=== PATIENT | female | born 1930 | race Hispanic/Latino ===

== ENCOUNTER 2017-03-03 18:33 | Inpatient (IN) | payer MEDICARE ==
[2017-03-03 20:13] LABS: Basophils % (Auto) 0.1 % (0.0-1.8); Eosinophils % (Auto) 0.1 % (0.0-4.3); Hematocrit 37.3 % (30.3-42.9); Hemoglobin 12.2 gm/dl (10.1-14.3); Mean Corpuscular HGB Conc 33 % (30-34); Mean Corpuscular Hemoglobin 32 pg (28-32); Mean Corpuscular Volume 98 fl (79-97); Red Blood Count 3.81 M/mm3 (3.65-5.03); Red Cell Distribution Width 15.3 % (13.2-15.2); White Blood Count 10.2 K/mm3 (4.5-11.0)
--- NOTE | 2017-03-03 20:16 | Emergency Department Report ---
ED Altered Mental Status HPI - General Chief Complaint: Dyspnea/Respdistress Stated Complaint: FAILURE TO THRIVE Time Seen by Provider: 03/03/17 19:48 Source: family, EMS Mode of arrival: Stretcher Limitations: Physical Limitation - History of Present Illness Initial Comments: 86 yo female the past medical history CHF, COPD, dementia, hypertension, atrial fibrillation, previous appendectomy internal defibrillator presents to the hospital with decrease in mental status. Patient has been in rehabilitation the last 4 weeks after fall. Patient did not have any specific injury since the fall but did have a bad UTI. Prior to her rehabilitation admission patient will walk with a cane but now she has very little independent movement. On . Patient had a chest x-ray that was positive for upper right lung infiltrate, cardiomegaly, and pacemaker. Per medical record patient also has a history of nonischemic cardiomyopathy with EF of 30-35% and chronic renal insufficiency. Patient has been on Levaquin since February 25 5 days for pneumonia and doxycycline prescribed on February 20 7 days for cellulitis. Patient has been on oxygen at the rehabilitation facility since being diagnosed with pneumonia. Given patient's significant dementia mostly history of present illness obtained from [facility] records and family members at the bedside. Positive cough reported. No reports of fever. - Related Data Allergies Allergy/AdvReac Type Severity Reaction Status Date / Time codeine Allergy Headache Verified 03/03/17 19:33 Iodine and Iodide Containing Allergy Rash Verified 03/03/17 19:33 Produc Sulfa (Sulfonamide Allergy Hives Verified 03/03/17 19:33 Antibiotics) ED Review of Systems ROS: Stated complaint: FAILURE TO THRIVE Other details as noted in HPI Comment: Unobtainable due to pts medical conditions (limited due to dementia) ED Past Medical Hx - Past Medical History Previous Medical History?: Yes Hx Hypertension: Yes Hx Congestive Heart Failure: Yes Hx COPD: Yes Hx Dementia: Yes Additional medical history: afib, - Surgical History Past Surgical History?: Yes Hx Pacemaker: Yes Hx Internal Defibrillator: Yes Hx Appendectomy: Yes Additional Surgical History: hysterectomy - Social History Smoking Status: Never Smoker Substance Use Type: None ED Physical Exam - General Limitations: Physical Limitation - Other Other exam information: General: No limitations, patient is alert in no acute distress Head exam: Atraumatic, normocephalic Eyes exam: Normal appearance ENT: Moist mucous membrane, normal oropharynx Neck exam: nontender Respiratory exam: Wet sounding cough, bilateral rhonchi, no accessory muscle use Cardiovascular: Normal rate and rhythm, normal heart sounds Abdomen: Soft, nondistended, and nontender, with normal bowel sounds, no rebound, or guarding Extremity: Full range of motion normal inspection no deformity no edema Back: Normal Inspection, full range of motion, no tenderness Neurologic: Alert, cranial nerves intact, no motor or sensory deficit Psychiatric: normal affect, normal mood Skin: Warm, dry, intact ED Course Vital Signs 03/03/17 03/03/17 03/03/17 19:37 19:44 19:46 Temperature 97.2 F L Pulse Rate 72 Respiratory 18 Rate Blood Pressure 127/50 [Left] O2 Sat by Pulse 97 95 Oximetry - Reevaluation(s) Reevaluation #1: 03/03/17 22:20 Pt being monitored. Straight cath UA still pending - Lab Data Result diagrams: 03/03/17 19:48 03/03/17 19:43 Lab Results 03/03/17 03/03/17 03/03/17 Range/Units 19:43 19:43 19:48 WBC 10.2 (4.5-11.0) K/mm3 RBC 3.81 (3.65-5.03) M/mm3 Hgb 12.2 (10.1-14.3) gm/dl Hct 37.3 (30.3-42.9) % MCV 98 H (79-97) fl MCH 32 (28-32) pg MCHC 33 (30-34) % RDW 15.3 H (13.2-15.2) % Plt Count 90 L (140-440) K/mm3 Lymph % (Auto) 28.3 (13.4-35.0) % Sac % (Auto) 5.2 (0.0-7.3) % Eos % (Auto) 0.1 (0.0-4.3) % Baso % (Auto) 0.1 (0.0-1.8) % Lymph # 2.9 (1.2-5.4) K/mm3 Sac # 0.5 (0.0-0.8) K/mm3 Eos # 0.0 (0.0-0.4) K/mm3 Baso # 0.0 (0.0-0.1) K/mm3 Seg Neutrophils % 66.3 (40.0-70.0) % Seg Neutrophils # 6.8 (1.8-7.7) K/mm3 PT (12.2-14.9) Sec. INR (0.87-1.13) APTT (24.2-36.6) Sec. Sodium 146 H (137-145) mmol/L Potassium 3.7 (3.6-5.0) mmol/L Chloride 100.7 (98-107) mmol/L Carbon Dioxide 36 H (22-30) mmol/L Anion Gap 13 mmol/L BUN 42 H (7-17) mg/dL Creatinine 1.2 (0.7-1.2) mg/dL Estimated GFR 42 ml/min BUN/Creatinine Ratio 35.00 % Glucose 125 H (65-100) mg/dL Calcium 10.6 H (8.4-10.2) mg/dL Total Bilirubin 0.70 (0.1-1.2) mg/dL AST 24 (5-40) units/L ALT 11 (7-56) units/L Alkaline Phosphatase 91 (35-129) units/L NT-Pro-B Natriuret Pep 5035 H (0-900) pg/mL Total Protein 5.8 L (6.3-8.2) g/dL Albumin 3.1 L (3.9-5) g/dL Albumin/Globulin Ratio 1.1 % TSH (0.270-4.200) mlU/mL Free T4 (0.76-1.46) ng/dL Urine Color (Yellow) Urine Turbidity (Clear) Urine pH (5.0-7.0) Ur Specific [place] (1.003-1.030) Urine Protein (Negative) mg/dL Urine Glucose (UA) (Negative) mg/dL Urine Ketones (Negative) mg/dL Urine Blood (Negative) Urine Nitrite (Negative) Urine Bilirubin (Negative) Urine Urobilinogen (<2.0) mg/dL Ur Leukocyte Esterase (Negative) Urine WBC (Auto) (0.0-6.0) /HPF Urine RBC (Auto) (0.0-6.0) /HPF U Epithel Cells (Auto) (0-13.0) /HPF Urine Bacteria (Auto) (Negative) /HPF Hyaline Casts /LPF Urine Mucus /HPF Hepatitis A IgM Ab (NonReactive) Hep B Core IgM Ab (NonReactive) Hepatitis C Antibody (NonReactive) HIV 1&2 Antibody Rapid (Non React) HIV P24 Antigen (Non React) 03/03/17 03/03/17 03/03/17 Range/Units 20:03 20:15 20:15 WBC (4.5-11.0) K/mm3 RBC (3.65-5.03) M/mm3 Hgb (10.1-14.3) gm/dl Hct (30.3-42.9) % MCV (79-97) fl MCH (28-32) pg MCHC (30-34) % RDW (13.2-15.2) % Plt Count (140-440) K/mm3 Lymph % (Auto) (13.4-35.0) % Sac % (Auto) (0.0-7.3) % Eos % (Auto) (0.0-4.3) % Baso % (Auto) (0.0-1.8) % Lymph # (1.2-5.4) K/mm3 Sac # (0.0-0.8) K/mm3 Eos # (0.0-0.4) K/mm3 Baso # (0.0-0.1) K/mm3 Seg Neutrophils % (40.0-70.0) % Seg Neutrophils # (1.8-7.7) K/mm3 PT 15.5 H (12.2-14.9) Sec. INR 1.24 H (0.87-1.13) APTT 34.0 (24.2-36.6) Sec. Sodium (137-145) mmol/L Potassium (3.6-5.0) mmol/L Chloride (98-107) mmol/L Carbon Dioxide (22-30) mmol/L Anion Gap mmol/L BUN (7-17) mg/dL Creatinine (0.7-1.2) mg/dL Estimated GFR ml/min BUN/Creatinine Ratio % Glucose (65-100) mg/dL Calcium (8.4-10.2) mg/dL Total Bilirubin (0.1-1.2) mg/dL AST (5-40) units/L ALT (7-56) units/L Alkaline Phosphatase (35-129) units/L NT-Pro-B Natriuret Pep (0-900) pg/mL Total Protein (6.3-8.2) g/dL Albumin (3.9-5) g/dL Albumin/Globulin Ratio % TSH 0.359 (0.270-4.200) mlU/mL Free T4 1.96 H (0.76-1.46) ng/dL Urine Color (Yellow) Urine Turbidity (Clear) Urine pH (5.0-7.0) Ur Specific Eaton (1.003-1.030) Urine Protein (Negative) mg/dL Urine Glucose (UA) (Negative) mg/dL Urine Ketones (Negative) mg/dL Urine Blood (Negative) Urine Nitrite (Negative) Urine Bilirubin (Negative) Urine Urobilinogen (<2.0) mg/dL Ur Leukocyte Esterase (Negative) Urine WBC (Auto) (0.0-6.0) /HPF Urine RBC (Auto) (0.0-6.0) /HPF U Epithel Cells (Auto) (0-13.0) /HPF Urine Bacteria (Auto) (Negative) /HPF Hyaline Casts /LPF Urine Mucus /HPF Hepatitis A IgM Ab Non-reactive (NonReactive) Hep B Core IgM Ab Non-reactive (NonReactive) Hepatitis C Antibody Non-reactive (NonReactive) HIV 1&2 Antibody Rapid Non react (Non React) HIV P24 Antigen Non react (Non React) 03/03/17 Range/Units 23:21 WBC (4.5-11.0) K/mm3 RBC (3.65-5.03) M/mm3 Hgb (10.1-14.3) gm/dl Hct (30.3-42.9) % MCV (79-97) fl MCH (28-32) pg MCHC (30-34) % RDW (13.2-15.2) % Plt Count (140-440) K/mm3 Lymph % (Auto) (13.4-35.0) % Sac % (Auto) (0.0-7.3) % Eos % (Auto) (0.0-4.3) % Baso % (Auto) (0.0-1.8) % Lymph # (1.2-5.4) K/mm3 Sac # (0.0-0.8) K/mm3 Eos # (0.0-0.4) K/mm3 Baso # (0.0-0.1) K/mm3 Seg Neutrophils % (40.0-70.0) % Seg Neutrophils # (1.8-7.7) K/mm3 PT (12.2-14.9) Sec. INR (0.87-1.13) APTT (24.2-36.6) Sec. Sodium (137-145) mmol/L Potassium (3.6-5.0) mmol/L Chloride (98-107) mmol/L Carbon Dioxide (22-30) mmol/L Anion Gap mmol/L BUN (7-17) mg/dL Creatinine (0.7-1.2) mg/dL Estimated GFR ml/min BUN/Creatinine Ratio % Glucose (65-100) mg/dL Calcium (8.4-10.2) mg/dL Total Bilirubin (0.1-1.2) mg/dL AST (5-40) units/L ALT (7-56) units/L Alkaline Phosphatase (35-129) units/L NT-Pro-B Natriuret Pep (0-900) pg/mL Total Protein (6.3-8.2) g/dL Albumin (3.9-5) g/dL Albumin/Globulin Ratio % TSH (0.270-4.200) mlU/mL Free T4 (0.76-1.46) ng/dL Urine Color Yellow (Yellow) Urine Turbidity Clear (Clear) Urine pH 5.0 (5.0-7.0) Ur Specific E[place] 1.015 (1.003-1.030) Urine Protein <15 mg/dl (Negative) mg/dL Urine Glucose (UA) Neg (Negative) mg/dL Urine Ketones Neg (Negative) mg/dL Urine Blood Sm (Negative) Urine Nitrite Neg (Negative) Urine Bilirubin Neg (Negative) Urine Urobilinogen < 2.0 (<2.0) mg/dL Ur Leukocyte Esterase Tr (Negative) Urine WBC (Auto) 6.0 (0.0-6.0) /HPF Urine RBC (Auto) < 1.0 (0.0-6.0) /HPF U Epithel Cells (Auto) 5.0 (0-13.0) /HPF Urine Bacteria (Auto) 2+ (Negative) /HPF Hyaline Casts 10 /LPF Urine Mucus 3+ /HPF Hepatitis A IgM Ab (NonReactive) Hep B Core IgM Ab (NonReactive) Hepatitis C Antibody (NonReactive) HIV 1&2 Antibody Rapid (Non React) HIV P24 Antigen (Non React) - EKG Data -: EKG Interpreted by Me (demand pacemaker rate 73) When compared to previous EKG there are: previous EKG unavailable - Radiology Data Radiology results: report reviewed interpreted by me: Chest x-ray: Heart is enlarged. Retrocardiac density measuring [address] chest noncontrast: Masslike structure seen on chest x-ray as a prominent left atrium. Heart is overall slightly enlarged. Atelectasis at both lung bases and feet lower lobe infiltrate - Medical Decision Making UA pending at disposition. Patient has bilateral infiltrate seen on chest x- ray but no leukocytosis or fever. Plan to admit to the hospital for further treatment and possible repeat her evaluation given prominent left atrium on CT. [employer] had a accidental needle stick to a blood draw differential. Hepatitis panels ordered - Differential Diagnosis pneumonia, bronchitis, CHF, LA, UTI, thyroid disease Critical Care Time: No Critical care attestation.: If time is entered above; I have spent that time in minutes in the direct care of this critically ill patient, excluding procedure time. ED Disposition Clinical Impression: Pacemaker, Dementia, Pulmonary infiltrate, Left atrial enlargement, Thrombocytopenia CHF (congestive heart failure) Qualifiers: Congestive heart failure type: unspecified congestive heart failure type Congestive heart failure chronicity: unspecified congestive heart failure chronicity Qualified Code(s): I50.9 - Heart failure, unspecified Atrial fibrillation Qualifiers: Atrial fibrillation type: chronic Qualified Code(s): I48.2 - Chronic atrial fibrillation Dyspnea Qualifiers: Dyspnea type: unspecified Qualified Code(s): R06.00 - Dyspnea, unspecified Disposition: OP ADMITTED IP TO THIS HOSP Is pt being admited?: Yes Condition: Stable Referrals: PRIMARY CARE,MD [Primary Care Provider] - 3-5 Days Time of Disposition: 22:20 (Dr Ortega/hosp)
[2017-03-03 20:21] LABS: Albumin 3.1 g/dL (3.9-5); Albumin/Globulin Ratio 1.1 %; Bilirubin,Total 0.7 mg/dL (0.1-1.2); Calcium 10.6 mg/dL (8.4-10.2); Chloride 100.7 mmol/L (98-107); Potassium 3.7 mmol/L (3.6-5.0); Total Protein 5.8 g/dL (6.3-8.2)
[2017-03-03 20:21] LABS: INR 1.24 (0.87-1.13)
--- NOTE | 2017-03-03 20:41 | Admit Criteria Form ---
Admission Criteria Documentation: HEART FAILURE: COMMON COMPLICATIONS Clinical Indications for Inpatient Care (Place 'X' for any and all applicable criteria): Ongoing inpatient care may be indicated for heart failure with ANY ONE of the following (1)(2)(3)(4)(5): [ ]I. Ongoing need for care for primary condition requiring frequent therapy adjustments because of changes in cardiac function (eg, drug dosage changes for drugs that are renally metabolized) [ ]II. New-onset heart failure [ ]III. Heart failure with decreased urine output not responsive to attempts to optimize volume status [ ]IV. Acute cardiac ischemia causing or associated with failure [X]V. Complications of heart failure, including ANY ONE of the following: [ ]a) Pericardial effusion [ ]b) Symptomatic pleural effusion [ ]c) O2 saturation <90% or PO2 < 60 mm Hg (8.0 kPa) on room air or require baseline supplemental O2 [ ]d) Tachypnea [ X]e) Dyspnea [ ]f) Syncope [ ]g) Change in mental status [ ]h) Acute renal insufficiency that is severe (reduction of more than 50% in estimated glomerular filtration rate from baseline) or progressive reduction of more than 25% in estimated glomerular filtration rate from baseline, with creatinine continuing to rise) [ ]i) Hemodynamic instability [ ]j) Anasarca [ ]k) Clinically significant metabolic abnormalities due to heart failure (eg, new-onset metabolic acidosis) Extended stay beyond goal length of stay for primary condition may be needed until ALL of the following are present(1)(3): [ ]a) Stable and effective diuretic regimen established (or patient on stable dialysis regimen if in chronic renal failure) [ ]b) Breathing comfortably at rest [ ]c) Saturation of arterial oxygen greater than 90% or at acceptable baseline [ ]d) Pulmonary edema absent or improved [ ]e) Hemodynamic stability [ ]f) Volume status acceptable on oral medication [ ]g) Peripheral or sacral edema absent or improved [ ]h) Renal function stable and manageable at a lower level of care [ ]i) Complications (eg, pleural effusion) resolved or manageable at a lower level of care [ ]j) Patient or caregiver has received written discharge instructions or educational material addressing activity level, diet, discharge medications, follow-up appointment, weight monitoring, and what to do if symptoms worsen The original [facility] content created by [employer] has been revised. The portions of the content which have been revised are identified through the use of italic text or in bold, and [facility] has neither reviewed nor approved the modified material.All other unmodified content is copyright [facility]. Please see references footnoted in the original [facility] edition 2016 Admission Criteria Met: Yes
--- NOTE | 2017-03-03 20:44 | XRay Report ---
FINAL REPORT PROCEDURE: XR CHEST 1V AP TECHNIQUE: Chest radiograph anteroposterior view. CPT 16403 HISTORY: Dyspnea COMPARISON: No prior studies are available for comparison. FINDINGS: The heart is enlarged. There is retrocardiac masslike density measuring 12 centimeters. This could be a large hiatal hernia, aortic aneurysm or other mass. PA and lateral chest x-ray may be helpful. There is suboptimal inspiration. There is discoid atelectasis at the right lung base. There are no infiltrates, effusions or pneumothoraces. There is kyphosis of the thoracic spine. Pacemaker leads are in proper position. IMPRESSION: The heart is enlarged. There is retrocardiac masslike density measuring 12 centimeters. This could be a large hiatal hernia, aortic aneurysm or other mass. PA and lateral chest x-ray may be helpful. There is suboptimal inspiration. There is discoid atelectasis at the right lung base. There are no infiltrates, effusions or pneumothoraces.
[2017-03-03 20:49] LABS: Platelet Count 90 K/mm3 (140-440)
[2017-03-03 21:20] LABS: HIV-1 Antigen p24 Non React (Non React); HIVR-1/2 Ab Non React (Non React)
--- NOTE | 2017-03-03 21:57 | Cat Scan Report ---
FINAL REPORT PROCEDURE: CT CHEST WO CON TECHNIQUE: Computerized axial tomography of the chest was performed without contrast material. This study is performed without intravenous contrast and the sensitivity for pathology, including neoplasms, adenopathy, abscess, pulmonary embolism and aortic dissection, is reduced. HISTORY: mediastium mass, recent RUL infiltrate COMPARISON: Chest x-ray 03/03/2017. Questionable mediastinal mass noted at that time. TECHNICAL QUALITY: Satisfactory. FINDINGS: The masslike shadow seen on chest x-ray is a prominent left atrium. The heart is overall slightly enlarged. There is no pericardial effusion or mass. Thoracic aorta is normal in caliber. There is no mediastinal or hilar lymphadenopathy. There is atelectasis at the lung bases and there are faint lower lobe infiltrates. There are no effusions or pneumothoraces. 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 There is no intrinsic filling defect. There is mild kyphosis of the thoracic spine. There are no acute bony abnormalities. The pacemaker leads are in proper position. Images of the upper abdomen demonstrate cholelithiasis. There is edematous thickening of the distal esophagus and the gastric fundus suggesting inflammation. There are bilateral kidney cysts. IMPRESSION: The masslike shadow seen on chest x-ray is a prominent left atrium. The heart is overall slightly enlarged. There is no pericardial effusion or mass. Thoracic aorta is normal in caliber. There is no mediastinal or hilar lymphadenopathy. There is atelectasis at the lung bases and there are faint lower lobe infiltrates. There are no effusions or pneumothoraces. 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 There is no intrinsic filling defect. .
[2017-03-03] MEDS ORDERED: TYLENOL PO PRN (23:32)
[2017-03-03] MEDS ORDERED: ZOFRAN IV PRN (23:37)
[2017-03-03 23:57] LABS: Bacteria,Urine 2+ /HPF (Negative); Bilirubin,Urine NEG (Negative); Blood,Urine SM (Negative); Ketones,Urine NEG (Negative); Leukocyte Esterase,Urine TR (Negative); Mucus,Urine 3+ /HPF; Nitrite,Urine NEG (Negative); Protein,Urine <15 mg/dL mg/dL (Negative); RBC,Urine < 1.0 /HPF (0.0-6.0); Urobilinogen,Urine < 2.0 mg/dL (<2.0)
[2017-03-04] MEDS ORDERED: PERCOCET PO SCH (02:15)
--- NOTE | 2017-03-04 03:46 | History and Physical Report ---
CHIEF COMPLAINT: Change in mental status. HISTORY OF PRESENT ILLNESS: The patient is an 86-year-old female brought from rehabilitation center where she went to have rehabilitation following a fall about 4 to 5 weeks ago. The patient was also diagnosed with pneumonia and was started on oral antibiotics and since then, the patient has not been feeling alright and has been on oxygen at the rehabilitation center. The patient also complains of weakness. There was no history of fever or chills. No history of chest pain or cough or nausea or vomiting and the patient was also recently diagnosed with urinary tract infection. PAST MEDICAL HISTORY: Pertinent for congestive heart failure with cardiomyopathy with ejection fraction of 30-35%, COPD, dementia, hypertension, atrial fibrillation. Also, the patient has a past history of hypertension. PAST SURGICAL HISTORY: Pertinent for pacemaker placement, defibrillator placement, appendectomy as well as hysterectomy. FAMILY HISTORY: Noncontributory. SOCIAL HISTORY: The patient stays at the rehabilitation center. Does not smoke cigarettes, does not drink alcohol and does not use illicit drugs. HOME MEDICATIONS: The patient's home medications are not known at this time. ALLERGIES: The patient is ALLERGIC TO CODEINE, IODINE AND IODIZED PRODUCT. REVIEW OF SYSTEMS: CONSTITUTIONAL: There is no fever, no chills, no diaphoresis. HEENT: There is no headache or sore throat. CARDIOVASCULAR: There is no chest pain, orthopnea. RESPIRATORY SYSTEM: There is shortness of breath, but no cough. GASTROINTESTINAL SYSTEM: There is no nausea, no vomiting, no abdominal pain, diarrhea or constipation. NEUROLOGICAL SYSTEM: Change in mental status noted. No dizziness. Weakness noted. MUSCULOSKELETAL SYSTEM: There is no joint pain or swelling. DERMATOLOGICAL SYSTEM: There is no skin rash or itching. GENITOURINARY SYSTEM: There is no dysuria, hematuria, or flank pain. Rest of system review is normal. PHYSICAL EXAMINATION: GENERAL: At the time of exam, the patient was found to be alert and oriented to person only and not in acute distress. VITAL SIGNS: Shows normal temperature with blood pressure of 128/49 with O2 sat of 98% on room air, the patient's pulse rate is normal, respiratory rate is also normal. HEENT: Showed pupils to be equal, round, reactive to light and accommodation. Extraocular muscles are intact. NECK: Supple with no JVD or carotid bruit. CARDIOVASCULAR SYSTEM: Show first and second heart sounds with irregularly irregular rhythm. Acute. RESPIRATORY: Show good air entry on both sides of the lung with bilateral scattered crackles. GASTROINTESTINAL SYSTEM: Show abdomen to be full, soft, nontender with no organomegaly or rigidity. NEUROLOGICAL: Showed no focal deficit. MUSCULOSKELETAL: Show no joint swelling or tenderness. DERMATOLOGICAL SYSTEM: Show no skin rash. GENITOURINARY: Showing no costovertebral angle tenderness. PERTINENT LABORATORY DATA AND IMAGING STUDIES: The patient had CBC done with normal white count, normal hemoglobin and normal hematocrit. Coagulation study shows slightly elevated INR of 1.24. The patient's chemistry shows slightly elevated sodium of 146 with high CO2 of 36, high BUN of 42, normal creatinine and normal GFR. The patient's brain natriuretic peptide show a high value of 5035. The patient's free T4 level was high with a value of 1.96 while TSH level is normal. The patient's urinalysis was unremarkable. Serology for hepatitis A is nonreactive and hepatitis B surface antigen is pending. Hepatitis B core IgM is nonreactive. Hepatitis C antibody is nonreactive. HIV-1/HIV-2 antigen nonreactive. IMAGING STUDIES: The patient had imaging studies done that shows CT chest that shows bilateral pulmonary infiltrate and prominent left atrium. DIAGNOSES: 1. Altered mental status. 1. Pneumonia bilaterally. PLAN: The patient will be admitted to medical floor and will have 2D echo done in the morning to analyze the heart especially the atrium that looks abnormal on chest x-ray and CT. Also, patient's DVT prophylaxis will be through sequential compressive device and also the patient will be on heparin 5000 units subQ q. 12. The patient will be on Levaquin 750 mg daily and will be on IV Zofran 4 mg q. 6 hours for nausea and vomiting and Tylenol 650 mg by mouth every 6 hours for fever and headache. The patient will be on oxygen by nasal cannula 2 liters per minute and the patient's home medications will be started when they are known. JOB# [id number] OCN/NTS
[2017-03-04] MEDS: HEPARIN SUB-Q SCH ×2 (05:49→09:58)
[2017-03-04] MEDS: COREG PO SCH ×2 (09:54→21:16)
[2017-03-04] MEDS: LASIX PO SCH (09:54)
[2017-03-04] MEDS: ALDACTONE PO SCH (09:55)
[2017-03-04] MEDS: ZESTRIL PO SCH (09:56)
[2017-03-04] MEDS: BABY ASPIRIN PO SCH (09:56)
[2017-03-04] MEDS: NAMENDA XR PO SCH (09:57)
[2017-03-04] MEDS: MUCINEX ER PO SCH ×2 (09:57→21:16)
[2017-03-04] MEDS ORDERED: DOXYCYCLINE 100 MG PO SCH (10:00)
[2017-03-04] MEDS ORDERED: NAMENDA 7 MG PO SCH (10:00)
[2017-03-04] MEDS ORDERED: NON-FORMULARY (Spironolactone 25 MG) PO SCH (10:00)
[2017-03-04] MEDS ORDERED: VIBRAMYCIN PO SCH (10:00)
[2017-03-04] MEDS ORDERED: NON-FORMULARY (Lasix Tab 20 MG) PO SCH (10:00)
[2017-03-04] MEDS ORDERED: LEVAQUIN 750MG/150ML 750 MG/150 ML BAG IV SCH ×2 (10:00)
[2017-03-04] MEDS ORDERED: NON-FORMULARY (Coreg 12.5 MG) PO SCH (10:00)
[2017-03-04] MEDS ORDERED: NON-FORMULARY (Simvastatin 20 MG) PO SCH (10:00)
[2017-03-04] MEDS ORDERED: VANCOMYCIN PHARMACY TO DOSE IV SCH (11:00)
[2017-03-04] MEDS: PERCOCET 5/325 PO SCH ×2 (12:00→17:54)
[2017-03-04] MEDS ORDERED: PNEUMOVAX 23 IM ONE (12:00)
[2017-03-04] MEDS ORDERED: FLUARIX QUAD 2016-2017(36 MOS+) IM ONE (12:00)
[2017-03-04] MEDS: ZOSYN/NS 4.5GM/100ML 4.5 GM/100 ML VIAL IV SCH ×2 (12:35→17:42)
[2017-03-04] MEDS ORDERED: VANCOMYCIN 1,750 MG in NACL 0.9% 500 ML 500 ML IV ONE (13:00)
--- NOTE | 2017-03-04 14:40 | Progress Note ---
Assessment and Plan Assessment and plan: Healthcare Associated pneumonia involving both lower lobes Dementia Mild dehydration - Patient is on IV vancomycin and Zosyn - Supportive care for dementia - Resume oral feeding - Nutrition consult Disposition - Continue inpatient care - Family expressed not happy in the current prison so they want to change - unit manager convenience stores and executive secretary social welfare involved with placement History Interval history: Patient was seen and evaluated this morning, daughter and were in the room. Patient was somnolent. Hospitalist Physical - Physical exam Narrative exam: Not in cardiopulmonary distress. The patient appeared well nourished and normally developed. Vital signs as documented. Head exam is unremarkable. No scleral icterus . Neck is without jugular venous distension, thyromegaly, or carotid bruits. Lungs are clear to auscultation. Cardiac exam reveals regular rate and Rhythm. First and second heart sounds normal. No murmurs, rubs or gallops. Abdominal exam reveals normal bowel sounds, no masses, no organomegaly and no aortic enlargement. Extremities are nonedematous and both femoral and pedal pulses are normal. PROVIDER EDUCATION SPECIALIST: lethargic. - Constitutional Vitals: Temp Pulse Resp BP Pulse Ox 97.3 F L 76 16 127/60 96 03/04/17 08:45 03/04/17 08:45 03/04/17 08:45 03/04/17 08:45 03/04/17 09:02 Results - Labs CBC & Chem 7: 03/03/17 19:48 03/03/17 19:43 Labs: Laboratory Last Values WBC 10.2 K/mm3 (4.5-11.0) 03/03/17 19:48 RBC 3.81 M/mm3 (3.65-5.03) 03/03/17 19:48 Hgb 12.2 gm/dl (10.1-14.3) 03/03/17 19:48 Hct 37.3 % (30.3-42.9) 03/03/17 19:48 MCV 98 fl (79-97) H 03/03/17 19:48 MCH 32 pg (28-32) 03/03/17 19:48 MCHC 33 % (30-34) 03/03/17 19:48 RDW 15.3 % (13.2-15.2) H 03/03/17 19:48 Plt Count 90 K/mm3 (140-440) L 03/03/17 19:48 Lymph % (Auto) 28.3 % (13.4-35.0) 03/03/17 19:48 [place] % (Auto) 5.2 % (0.0-7.3) 03/03/17 19:48 Eos % (Auto) 0.1 % (0.0-4.3) 03/03/17 19:48 Baso % (Auto) 0.1 % (0.0-1.8) 03/03/17 19:48 Lymph # 2.9 K/mm3 (1.2-5.4) 03/03/17 19:48 [place] # 0.5 K/mm3 (0.0-0.8) 03/03/17 19:48 Eos # 0.0 K/mm3 (0.0-0.4) 03/03/17 19:48 Baso # 0.0 K/mm3 (0.0-0.1) 03/03/17 19:48 Seg Neutrophils % 66.3 % (40.0-70.0) 03/03/17 19:48 Seg Neutrophils # 6.8 K/mm3 (1.8-7.7) 03/03/17 19:48 PT 15.5 Sec. (12.2-14.9) H 03/03/17 20:03 INR 1.24 (0.87-1.13) H 03/03/17 20:03 APTT 34.0 Sec. (24.2-36.6) 03/03/17 20:03 Sodium 146 mmol/L (137-145) H 03/03/17 19:43 Potassium 3.7 mmol/L (3.6-5.0) 03/03/17 19:43 Chloride 100.7 mmol/L (98-107) 03/03/17 19:43 Carbon Dioxide 36 mmol/L (22-30) H 03/03/17 19:43 Anion Gap 13 mmol/L 03/03/17 19:43 BUN 42 mg/dL (7-17) H 03/03/17 19:43 Creatinine 1.2 mg/dL (0.7-1.2) 03/03/17 19:43 Estimated GFR 42 ml/min 03/03/17 19:43 BUN/Creatinine Ratio 35.00 % 03/03/17 19:43 Glucose 125 mg/dL (65-100) H 03/03/17 19:43 Calcium 10.6 mg/dL (8.4-10.2) H 03/03/17 19:43 Total Bilirubin 0.70 mg/dL (0.1-1.2) 03/03/17 19:43 AST 24 units/L (5-40) 03/03/17 19:43 ALT 11 units/L (7-56) 03/03/17 19:43 Alkaline Phosphatase 91 units/L (35-129) 03/03/17 19:43 NT-Pro-B Natriuret Pep 5035 pg/mL (0-900) H 03/03/17 19:43 Total Protein 5.8 g/dL (6.3-8.2) L 03/03/17 19:43 Albumin 3.1 g/dL (3.9-5) L 03/03/17 19:43 Albumin/Globulin Ratio 1.1 % 03/03/17 19:43 TSH 0.359 mlU/mL (0.270-4.200) 03/03/17 20:15 Free T4 1.96 ng/dL (0.76-1.46) H 03/03/17 20:15 Urine Color Yellow (Yellow) 03/03/17 23:21 Urine Turbidity Clear (Clear) 03/03/17 23:21 Urine pH 5.0 (5.0-7.0) 03/03/17 23:21 Ur Specific [place] 1.015 (1.003-1.030) 03/03/17 23:21 Urine Protein <15 mg/dl mg/dL (Negative) 03/03/17 23:21 Urine Glucose (UA) Neg mg/dL (Negative) 03/03/17 23:21 Urine Ketones Neg mg/dL (Negative) 03/03/17 23:21 Urine Blood Sm (Negative) 03/03/17 23:21 Urine Nitrite Neg (Negative) 03/03/17 23:21 Urine Bilirubin Neg (Negative) 03/03/17 23:21 Urine Urobilinogen < 2.0 mg/dL (<2.0) 03/03/17 23:21 Ur Leukocyte Esterase Tr (Negative) 03/03/17 23:21 Urine WBC (Auto) 6.0 /HPF (0.0-6.0) 03/03/17 23:21 Urine RBC (Auto) < 1.0 /HPF (0.0-6.0) 03/03/17 23:21 U Epithel Cells (Auto) 5.0 /HPF (0-13.0) 03/03/17 23:21 Urine Bacteria (Auto) 2+ /HPF (Negative) 03/03/17 23:21 Hyaline Casts 10 /LPF 03/03/17 23:21 Urine Mucus 3+ /HPF 03/03/17 23:21 Hepatitis A IgM Ab Non-reactive (NonReactive) 03/03/17 20:15 Hep B Core IgM Ab Non-reactive (NonReactive) 03/03/17 20:15 Hepatitis C Antibody Non-reactive (NonReactive) 03/03/17 20:15 HIV 1&2 Antibody Rapid Non react (Non React) 03/03/17 20:15 HIV P24 Antigen Non react (Non React) 03/03/17 20:15
[2017-03-04] MEDS: ZOCOR PO SCH (21:16)
[2017-03-04] MEDS: HEPARIN/ 0.45% NACL-25,000 UNIT/500 ML 25,000 UNITS/500 ML BAG IV SCH (21:44)
[2017-03-05] MEDS: PERCOCET 5/325 PO SCH ×2 (00:16→05:44)
[2017-03-05] MEDS: ZOSYN/NS 4.5GM/100ML 4.5 GM/100 ML VIAL IV SCH ×4 (00:17→21:38)
[2017-03-05 04:25] LABS: Basophils % (Auto) 1.3 % (0.0-1.8); Eosinophils % (Auto) 0.7 % (0.0-4.3); Hematocrit 36.3 % (30.3-42.9); Hemoglobin 11.8 gm/dl (10.1-14.3); Mean Corpuscular HGB Conc 32 % (30-34); Mean Corpuscular Hemoglobin 32 pg (28-32); Mean Corpuscular Volume 100 fl (79-97); Red Blood Count 3.63 M/mm3 (3.65-5.03); Red Cell Distribution Width 15.4 % (13.2-15.2); White Blood Count 11.4 K/mm3 (4.5-11.0)
[2017-03-05 04:54] LABS: Platelet Count 73 K/mm3 (140-440)
[2017-03-05 05:07] LABS: BUN/Creatinine Ratio 31.53; Calcium 10.1 mg/dL (8.4-10.2); Potassium 3.6 mmol/L (3.6-5.0)
[2017-03-05] MEDS: HEPARIN/ 0.45% NACL-25,000 UNIT/500 ML 25,000 UNITS/500 ML BAG IV SCH (06:59)
[2017-03-05] MEDS ORDERED: PERCOCET 5/325 PO PRN (07:54)
[2017-03-05] MEDS ORDERED: D5W 1,000 ML IV SCH (08:00)
[2017-03-05] MEDS: BABY ASPIRIN PO SCH (08:59)
[2017-03-05] MEDS: MUCINEX ER PO SCH ×2 (08:59→21:40)
[2017-03-05] MEDS: ZESTRIL PO SCH (08:59)
[2017-03-05] MEDS: NAMENDA XR PO SCH (08:59)
[2017-03-05] MEDS: COREG PO SCH ×2 (08:59→21:40)
[2017-03-05] MEDS: LASIX PO SCH (09:00)
[2017-03-05] MEDS: ALDACTONE PO SCH (09:00)
--- NOTE | 2017-03-05 11:08 | XRay Report ---
Portable chest: Aspiration. The lungs are hypoventilated. The left lung base is partially obscured by overlying pacemaker. Pacemaker wires are intact. There is minimal atelectasis just above the right hemidiaphragm. The left lung bases not well-visualized but appears generally clear. The heart is probably normal in size for positioning and poor inspiration. Compared to prior examination of March 03 no significant change identified. Impression: No pulmonary signs of aspiration.
[2017-03-05] MEDS: D5/0.45NS 1,000 ML IV SCH (14:06)
[2017-03-05] MEDS: VANCOMYCIN 1,250 MG in NACL 0.9% 250ML 250 ML IV SCH (14:14)
--- NOTE | 2017-03-05 15:40 | Progress Note ---
Assessment and Plan Assessment and plan: Healthcare Associated pneumonia involving both lower lobes Dementia Mild dehydration [place] Chocking episode Left leg pain - Patient is on IV vancomycin and Zosyn - Supportive care for dementia - Doppler U/S of the left leg - NPO - Barium swallow evaluation - On IV fluid Disposition - Continue inpatient care - Family expressed not happy in the current [facility] so they want to change - area manager and social service technician involved with placement History Interval history: Patient was seen and evaluated this morning, were in the room. Patient was somnolent. Patient was chocked this morning per nurse and speech evaluation was done and failed. Hospitalist Physical - Physical exam Narrative exam: Not in cardiopulmonary distress. The patient appeared well nourished and normally developed. Vital signs as documented. Head exam is unremarkable. No scleral icterus . Neck is without jugular venous distension, thyromegaly, or carotid bruits. Lungs are clear to auscultation. Cardiac exam reveals regular rate and Rhythm. First and second heart sounds normal. No murmurs, rubs or gallops. Abdominal exam reveals normal bowel sounds, no masses, no organomegaly and no aortic enlargement. Extremities are nonedematous and both femoral and pedal pulses are normal. LABOURERS: lethargic. - Constitutional Vitals: Temp Pulse Resp BP Pulse Ox 97.3 F L 82 18 143/63 97 03/05/17 08:00 03/05/17 08:00 03/05/17 08:00 03/05/17 08:00 03/05/17 10:28 Results - Labs CBC & Chem 7: 03/05/17 04:09 03/05/17 04:09 Labs: Laboratory Last Values WBC 11.4 K/mm3 (4.5-11.0) H 03/05/17 04:09 RBC 3.63 M/mm3 (3.65-5.03) L 03/05/17 04:09 Hgb 11.8 gm/dl (10.1-14.3) 03/05/17 04:09 Hct 36.3 % (30.3-42.9) 03/05/17 04:09 MCV 100 fl (79-97) H 03/05/17 04:09 MCH 32 pg (28-32) 03/05/17 04:09 MCHC 32 % (30-34) 03/05/17 04:09 RDW 15.4 % (13.2-15.2) H 03/05/17 04:09 Plt Count 73 K/mm3 (140-440) L 03/05/17 04:09 Lymph % (Auto) 28.0 % (13.4-35.0) 03/05/17 04:09 [place] % (Auto) 7.9 % (0.0-7.3) H 03/05/17 04:09 Eos % (Auto) 0.7 % (0.0-4.3) 03/05/17 04:09 Baso % (Auto) 1.3 % (0.0-1.8) 03/05/17 04:09 Lymph # 3.2 K/mm3 (1.2-5.4) 03/05/17 04:09 [place] # 0.9 K/mm3 (0.0-0.8) H 03/05/17 04:09 Eos # 0.1 K/mm3 (0.0-0.4) 03/05/17 04:09 Baso # 0.1 K/mm3 (0.0-0.1) 03/05/17 04:09 Seg Neutrophils % 62.1 % (40.0-70.0) 03/05/17 04:09 Seg Neutrophils # 7.1 K/mm3 (1.8-7.7) 03/05/17 04:09 PT 15.5 Sec. (12.2-14.9) H 03/03/17 20:03 INR 1.24 (0.87-1.13) H 03/03/17 20:03 APTT 34.0 Sec. (24.2-36.6) 03/03/17 20:03 Heparin Anti-Xa Level 0.98 U.I./ml (0.3-0.7) H 03/05/17 04:09 Sodium 152 mmol/L (137-145) H 03/05/17 04:09 Potassium 3.6 mmol/L (3.6-5.0) 03/05/17 04:09 Chloride 107.0 mmol/L (98-107) 03/05/17 04:09 Carbon Dioxide 39 mmol/L (22-30) H 03/05/17 04:09 Anion Gap 10 mmol/L 03/05/17 04:09 BUN 41 mg/dL (7-17) H 03/05/17 04:09 Creatinine 1.3 mg/dL (0.7-1.2) H 03/05/17 04:09 Estimated GFR 39 ml/min 03/05/17 04:09 BUN/Creatinine Ratio 31.53 % 03/05/17 04:09 Glucose 100 mg/dL (65-100) 03/05/17 04:09 Calcium 10.1 mg/dL (8.4-10.2) 03/05/17 04:09 Total Bilirubin 0.70 mg/dL (0.1-1.2) 03/03/17 19:43 AST 24 units/L (5-40) 03/03/17 19:43 ALT 11 units/L (7-56) 03/03/17 19:43 Alkaline Phosphatase 91 units/L (35-129) 03/03/17 19:43 NT-Pro-B Natriuret Pep 5035 pg/mL (0-900) H 03/03/17 19:43 Total Protein 5.8 g/dL (6.3-8.2) L 03/03/17 19:43 Albumin 3.1 g/dL (3.9-5) L 03/03/17 19:43 Albumin/Globulin Ratio 1.1 % 03/03/17 19:43 TSH 0.359 mlU/mL (0.270-4.200) 03/03/17 20:15 Free T4 1.96 ng/dL (0.76-1.46) H 03/03/17 20:15 Urine Color Yellow (Yellow) 03/03/17 23:21 Urine Turbidity Clear (Clear) 03/03/17 23:21 Urine pH 5.0 (5.0-7.0) 03/03/17 23:21 Ur Specific [place] 1.015 (1.003-1.030) 03/03/17 23:21 Urine Protein <15 mg/dl mg/dL (Negative) 03/03/17 23:21 Urine Glucose (UA) Neg mg/dL (Negative) 03/03/17 23:21 Urine Ketones Neg mg/dL (Negative) 03/03/17 23:21 Urine Blood Sm (Negative) 03/03/17 23:21 Urine Nitrite Neg (Negative) 03/03/17 23:21 Urine Bilirubin Neg (Negative) 03/03/17 23:21 Urine Urobilinogen < 2.0 mg/dL (<2.0) 03/03/17 23:21 Ur Leukocyte Esterase Tr (Negative) 03/03/17 23:21 Urine WBC (Auto) 6.0 /HPF (0.0-6.0) 03/03/17 23:21 Urine RBC (Auto) < 1.0 /HPF (0.0-6.0) 03/03/17 23:21 U Epithel Cells (Auto) 5.0 /HPF (0-13.0) 03/03/17 23:21 Urine Bacteria (Auto) 2+ /HPF (Negative) 03/03/17 23:21 Hyaline Casts 10 /LPF 03/03/17 23:21 Urine Mucus 3+ /HPF 03/03/17 23:21 Hepatitis A IgM Ab Non-reactive (NonReactive) 03/03/17 20:15 Hep B Core IgM Ab Non-reactive (NonReactive) 03/03/17 20:15 Hepatitis C Antibody Non-reactive (NonReactive) 03/03/17 20:15 HIV 1&2 Antibody Rapid Non react (Non React) 03/03/17 20:15 HIV P24 Antigen Non react (Non React) 03/03/17 20:15
[2017-03-05] MEDS: ZOCOR PO SCH (21:40)
[2017-03-06] MEDS: ZOSYN/NS 4.5GM/100ML 4.5 GM/100 ML VIAL IV SCH ×3 (06:21→22:27)
[2017-03-06 06:22] LABS: BUN/Creatinine Ratio 30.71; Chloride 104.1 mmol/L (98-107); Potassium 3.8 mmol/L (3.6-5.0)
[2017-03-06 07:48] LABS: Hematocrit 37.1 % (30.3-42.9); Hemoglobin 11.5 gm/dl (10.1-14.3); Mean Corpuscular HGB Conc 31 % (30-34); Mean Corpuscular Hemoglobin 31 pg (28-32); Mean Corpuscular Volume 101 fl (79-97); Red Blood Count 3.68 M/mm3 (3.65-5.03); Red Cell Distribution Width 16.1 % (13.2-15.2); White Blood Count 11.7 K/mm3 (4.5-11.0)
[2017-03-06 08:09] LABS: Platelet Count 67 K/mm3 (140-440)
[2017-03-06 08:26] LABS: Eosinophils % (Auto) 1.2 % (0.0-4.3)
[2017-03-06] MEDS: ALDACTONE PO SCH (09:46)
[2017-03-06] MEDS: COREG PO SCH ×2 (09:46→22:27)
[2017-03-06 10:08] LABS: Basophils % (Manual) 0 % (0.0-1.8); Blastocytes % (Manual) 0 %; Eosinophils % (Manual) 0 % (0.0-4.3)
[2017-03-06 10:11] LABS: Anisocytosis Few; Diff Status Complete; Poikilocytosis Few
--- NOTE | 2017-03-06 10:36 | Fluoroscopy Report ---
MODIFIED BARIUM SWALLOW History: Dysphagia, assess swallowing function, aspiration. Findings: Fluoroscopy was provided by the radiologist for speech therapy to assess the swallowing mechanism. Please refer to the formal report by speech therapy. Impression: Successful modified barium swallow.
[2017-03-06] MEDS: MUCINEX ER PO SCH ×2 (10:55→22:26)
[2017-03-06] MEDS: NAMENDA XR PO SCH (10:55)
[2017-03-06] MEDS: BABY ASPIRIN PO SCH (10:55)
[2017-03-06] MEDS: D5/0.45NS 1,000 ML IV SCH (11:20)
[2017-03-06] MEDS: VANCOMYCIN 1,250 MG in NACL 0.9% 250ML 250 ML IV SCH (14:28)
--- NOTE | 2017-03-06 15:48 | Progress Note ---
Assessment and Plan Assessment and plan: Healthcare Associated pneumonia involving both lower lobes Dementia Mild dehydration [place] Failed swallow evaluation Left leg pain Diastolic dysfunction - Patient is on IV vancomycin and Zosyn - Supportive care for dementia - Doppler U/S of the left leg - NPO, needs PEG, jaydon gastro consulted - Barium swallow evaluation - On D5 half NS 100ml/hr Disposition - Continue inpatient care - Family expressed not happy in the current [facility] so they want to change - product manager e commerce and director social welfare involved with placement History Interval history: Patient was seen and evaluated this morning, daughter was in the room. Patient was somnolent. Patient failed barium swallow evaluation and discussed about the result with family members. Hospitalist Physical - Physical exam Narrative exam: Not in cardiopulmonary distress. The patient appeared well nourished and normally developed. Vital signs as documented. Head exam is unremarkable. No scleral icterus . Neck is without jugular venous distension, thyromegaly, or carotid bruits. Lungs are clear to auscultation. Cardiac exam reveals regular rate and Rhythm. First and second heart sounds normal. No murmurs, rubs or gallops. Abdominal exam reveals normal bowel sounds, no masses, no organomegaly and no aortic enlargement. Extremities are nonedematous and both femoral and pedal pulses are normal. TRIAGE LICENSED PRACTICAL NURSE: lethargic. - Constitutional Vitals: Temp Pulse Resp BP Pulse Ox 97.8 F 70 16 96/50 96 03/06/17 12:21 03/06/17 12:21 03/06/17 12:21 03/06/17 12:21 03/06/17 12:21 Results - Labs CBC & Chem 7: 03/06/17 07:28 03/06/17 05:31 Labs: Laboratory Last Values WBC 11.7 K/mm3 (4.5-11.0) H 03/06/17 07:28 RBC 3.68 M/mm3 (3.65-5.03) 03/06/17 07:28 Hgb 11.5 gm/dl (10.1-14.3) 03/06/17 07:28 Hct 37.1 % (30.3-42.9) 03/06/17 07:28 MCV 101 fl (79-97) H 03/06/17 07:28 MCH 31 pg (28-32) 03/06/17 07:28 MCHC 31 % (30-34) 03/06/17 07:28 RDW 16.1 % (13.2-15.2) H 03/06/17 07:28 Plt Count 67 K/mm3 (140-440) L 03/06/17 07:28 Lymph % (Auto) 28.0 % (13.4-35.0) 03/05/17 04:09 [place] % (Auto) 7.3 % (0.0-7.3) 03/06/17 07:28 Eos % (Auto) 1.2 % (0.0-4.3) 03/06/17 07:28 Baso % (Auto) 1.3 % (0.0-1.8) 03/05/17 04:09 Lymph # 3.2 K/mm3 (1.2-5.4) 03/05/17 04:09 [place] # 0.8 K/mm3 (0.0-0.8) 03/06/17 07:28 Eos # 0.1 K/mm3 (0.0-0.4) 03/06/17 07:28 Baso # 0.0 K/mm3 (0.0-0.1) 03/06/17 07:28 Add Manual Diff Complete 03/06/17 07:28 Total Counted 100 03/06/17 07:28 Seg Neutrophils % 68.7 % (40.0-70.0) 03/06/17 07:28 Seg Neuts % (Manual) 86.0 % (40.0-70.0) H 03/06/17 07:28 Band Neutrophils % 4.0 % 03/06/17 07:28 Lymphocytes % (Manual) 6.0 % (13.4-35.0) L 03/06/17 07:28 Reactive Lymphs % (Man) 0 % 03/06/17 07:28 Monocytes % (Manual) 4.0 % (0.0-7.3) 03/06/17 07:28 Eosinophils % (Manual) 0 % (0.0-4.3) 03/06/17 07:28 Basophils % (Manual) 0 % (0.0-1.8) 03/06/17 07:28 Metamyelocytes % 0 % 03/06/17 07:28 Myelocytes % 0 % 03/06/17 07:28 Promyelocytes % 0 % 03/06/17 07:28 Blast Cells % 0 % 03/06/17 07:28 Nucleated RBC % Not Reportable 03/06/17 07:28 Seg Neutrophils # 8.0 K/mm3 (1.8-7.7) H 03/06/17 07:28 Seg Neutrophils # Man 10.1 K/mm3 (1.8-7.7) H 03/06/17 07:28 Band Neutrophils # 0.5 K/mm3 03/06/17 07:28 Lymphocytes # (Manual) 0.7 K/mm3 (1.2-5.4) L 03/06/17 07:28 Abs React Lymphs (Man) 0.0 K/mm3 03/06/17 07:28 Monocytes # (Manual) 0.5 K/mm3 (0.0-0.8) 03/06/17 07:28 Eosinophils # (Manual) 0.0 K/mm3 (0.0-0.4) 03/06/17 07:28 Basophils # (Manual) 0.0 K/mm3 (0.0-0.1) 03/06/17 07:28 Metamyelocytes # 0.0 K/mm3 03/06/17 07:28 Myelocytes # 0.0 K/mm3 03/06/17 07:28 Promyelocytes # 0.0 K/mm3 03/06/17 07:28 Blast Cells # 0.0 K/mm3 03/06/17 07:28 WBC Morphology Not Reportable 03/06/17 07:28 Hypersegmented Neuts Not Reportable 03/06/17 07:28 Hyposegmented Neuts Not Reportable 03/06/17 07:28 Hypogranular Neuts Not Reportable 03/06/17 07:28 Smudge Cells Not Reportable 03/06/17 07:28 Toxic Granulation Not Reportable 03/06/17 07:28 Toxic Vacuolation Not Reportable 03/06/17 07:28 Dohle Bodies Not Reportable 03/06/17 07:28 Pelger-Huet Anomaly Not Reportable 03/06/17 07:28 Lu Rods Not Reportable 03/06/17 07:28 Platelet Estimate Not Reportable 03/06/17 07:28 Clumped Platelets Not Reportable 03/06/17 07:28 Plt Clumps, EDTA Not Reportable 03/06/17 07:28 Large Platelets Not Reportable 03/06/17 07:28 Giant Platelets Not Reportable 03/06/17 07:28 Platelet Satelliting Not Reportable 03/06/17 07:28 Plt Morphology Comment Not Reportable 03/06/17 07:28 RBC Morphology Not Reportable 03/06/17 07:28 Dimorphic RBCs Not Reportable 03/06/17 07:28 Polychromasia Not Reportable 03/06/17 07:28 Hypochromasia Not Reportable 03/06/17 07:28 Poikilocytosis Few 03/06/17 07:28 Anisocytosis Few 03/06/17 07:28 Microcytosis Not Reportable 03/06/17 07:28 Macrocytosis Not Reportable 03/06/17 07:28 Spherocytes Not Reportable 03/06/17 07:28 Pappenheimer Bodies Not Reportable 03/06/17 07:28 Sickle Cells Not Reportable 03/06/17 07:28 Target Cells Not Reportable 03/06/17 07:28 Tear Drop Cells Not Reportable 03/06/17 07:28 Ovalocytes Not Reportable 03/06/17 07:28 Helmet Cells Not Reportable 03/06/17 07:28 [place] Bodies Not Reportable 03/06/17 07:28 [place] Rings Not Reportable 03/06/17 07:28 Juliocesar Cells Not Reportable 03/06/17 07:28 Bite Cells Not Reportable 03/06/17 07:28 Crenated Cell Not Reportable 03/06/17 07:28 Elliptocytes Not Reportable 03/06/17 07:28 Acanthocytes (Spur) Not Reportable 03/06/17 07:28 Rouleaux Not Reportable 03/06/17 07:28 Hemoglobin C Crystals Not Reportable 03/06/17 07:28 Schistocytes Not Reportable 03/06/17 07:28 Malaria parasites Not Reportable 03/06/17 07:28 Steven Bodies Not Reportable 03/06/17 07:28 Hem Pathologist Commnt No 03/06/17 07:28 PT 15.5 Sec. (12.2-14.9) H 03/03/17 20:03 INR 1.24 (0.87-1.13) H 03/03/17 20:03 APTT 34.0 Sec. (24.2-36.6) 03/03/17 20:03 Heparin Anti-Xa Level 0.98 U.I./ml (0.3-0.7) H 03/05/17 04:09 Sodium 147 mmol/L (137-145) H 03/06/17 05:31 Potassium 3.8 mmol/L (3.6-5.0) 03/06/17 05:31 Chloride 104.1 mmol/L (98-107) 03/06/17 05:31 Carbon Dioxide 35 mmol/L (22-30) H 03/06/17 05:31 Anion Gap 12 mmol/L 03/06/17 05:31 BUN 43 mg/dL (7-17) H 03/06/17 05:31 Creatinine 1.4 mg/dL (0.7-1.2) H 03/06/17 05:31 Estimated GFR 36 ml/min 03/06/17 05:31 BUN/Creatinine Ratio 30.71 % 03/06/17 05:31 Glucose 120 mg/dL (65-100) H 03/06/17 05:31 Calcium 10.0 mg/dL (8.4-10.2) 03/06/17 05:31 Total Bilirubin 0.70 mg/dL (0.1-1.2) 03/03/17 19:43 AST 24 units/L (5-40) 03/03/17 19:43 ALT 11 units/L (7-56) 03/03/17 19:43 Alkaline Phosphatase 91 units/L (35-129) 03/03/17 19:43 NT-Pro-B Natriuret Pep 5035 pg/mL (0-900) H 03/03/17 19:43 Total Protein 5.8 g/dL (6.3-8.2) L 03/03/17 19:43 Albumin 3.1 g/dL (3.9-5) L 03/03/17 19:43 Albumin/Globulin Ratio 1.1 % 03/03/17 19:43 TSH 0.359 mlU/mL (0.270-4.200) 03/03/17 20:15 Free T4 1.96 ng/dL (0.76-1.46) H 03/03/17 20:15 Urine Color Yellow (Yellow) 03/03/17 23:21 Urine Turbidity Clear (Clear) 03/03/17 23:21 Urine pH 5.0 (5.0-7.0) 03/03/17 23:21 Ur Specific [place] 1.015 (1.003-1.030) 03/03/17 23:21 Urine Protein <15 mg/dl mg/dL (Negative) 03/03/17 23:21 Urine Glucose (UA) Neg mg/dL (Negative) 03/03/17 23:21 Urine Ketones Neg mg/dL (Negative) 03/03/17 23:21 Urine Blood Sm (Negative) 03/03/17 23:21 Urine Nitrite Neg (Negative) 03/03/17 23:21 Urine Bilirubin Neg (Negative) 03/03/17 23:21 Urine Urobilinogen < 2.0 mg/dL (<2.0) 03/03/17 23:21 Ur Leukocyte Esterase Tr (Negative) 03/03/17 23:21 Urine WBC (Auto) 6.0 /HPF (0.0-6.0) 03/03/17 23:21 Urine RBC (Auto) < 1.0 /HPF (0.0-6.0) 03/03/17 23:21 U Epithel Cells (Auto) 5.0 /HPF (0-13.0) 03/03/17 23:21 Urine Bacteria (Auto) 2+ /HPF (Negative) 03/03/17 23:21 Hyaline Casts 10 /LPF 03/03/17 23:21 Urine Mucus 3+ /HPF 03/03/17 23:21 Hepatitis A IgM Ab Non-reactive (NonReactive) 03/03/17 20:15 Hep B Core IgM Ab Non-reactive (NonReactive) 03/03/17 20:15 Hepatitis C Antibody Non-reactive (NonReactive) 03/03/17 20:15 HIV 1&2 Antibody Rapid Non react (Non React) 03/03/17 20:15 HIV P24 Antigen Non react (Non React) 03/03/17 20:15
--- NOTE | 2017-03-06 17:48 | Consultation ---
History of Present Illness - Reason for Consult Consult date: 03/06/17 Oropharyngeal dysphagia - History of Present Illness Pt has multiple medical problems including heart disease with AICD and A Fib, dementia, and depression. She was in a Rehab facility x 4 wks, and developed bilateral pneumonia. She failed modified barium swallow, and consult is requested for G-tube feeding. No known abd pain, N/V, GI bleed. Past History Past Medical History: atrial fib, heart failure (LVEF = 45-50%), hypertension, other (AICD, depression) Past Surgical History: appendectomy, hysterectomy Social history: . denies: smoking, alcohol abuse Family history: no significant family history Medications and Allergies Allergies Allergy/AdvReac Type Severity Reaction Status Date / Time codeine Allergy Headache Verified 03/03/17 19:33 Iodine and Iodide Containing Allergy Rash Verified 03/03/17 19:33 Produc Sulfa (Sulfonamide Allergy Hives Verified 03/03/17 19:33 Antibiotics) Home Medications Medication Instructions Recorded Confirmed Last Taken Type ALBUTEROL Inhaler [Proair] 2 puff IH QID 03/04/17 03/04/17 1 Day Ago History Aspirin 81 mg PO DAILY 03/04/17 03/04/17 1 Day Ago History Coreg 12.5 mg PO DAILY 03/04/17 03/04/17 1 Day Ago History Doxycycline 100 mg PO DAILY 03/04/17 03/04/17 1 Day Ago History Lasix TAB 20 mg PO DAILY 03/04/17 03/04/17 1 Day Ago History Levaquin TAB 750 mg PO DAILY 03/04/17 03/04/17 1 Day Ago History Lisinopril [Zestril TAB] 40 mg PO DAILY 03/04/17 03/04/17 1 Day Ago History Namenda 7 mg PO DAILY 03/04/17 03/04/17 1 Day Ago History Simvastatin 20 mg PO QHS 03/04/17 03/04/17 1 Day Ago History Spironolactone 25 mg PO DAILY 03/04/17 03/04/17 1 Day Ago History guaiFENesin [Mucinex] 600 mg PO Q12HR 03/04/17 03/04/17 1 Day Ago History Active Meds: Active Medications Acetaminophen (Tylenol) 650 mg PO Q6H PRN PRN Reason: For Pain/Fever/Headache Aspirin (Baby Aspirin) 81 mg PO QDAY SOREN Last Admin: 03/06/17 10:55 Dose: Not Given Carvedilol (Coreg) 12.5 mg PO BID [facility] Last Admin: 03/06/17 09:46 Dose: Not Given Guaifenesin (Mucinex Er) 600 mg PO Q12HR [facility] Last Admin: 03/06/17 10:55 Dose: Not Given Vancomycin HCl 1,250 mg/ (Sodium Chloride) 275 mls @ 166.667 mls/hr IV Q24H [facility] Last Admin: 03/06/17 14:28 Dose: 166.667 mls/hr Piperacillin Sod/Tazobactam Sod (Zosyn/Ns 4.5gm/100ml) 4.5 gm in 100 mls @ 200 mls/hr IV Q8HR [facility] PRN Reason: Protocol Last Admin: 03/06/17 14:28 Dose: 200 mls/hr Dextrose/Sodium Chloride (D5/0.45ns) 1,000 mls @ 75 mls/hr IV DIRECT [facility] Last Admin: 03/06/17 11:20 Dose: 75 mls/hr Memantine (Namenda Xr) 7 mg PO QDAY [facility] Last Admin: 03/06/17 10:55 Dose: Not Given Ondansetron HCl (Zofran) 4 mg IV Q6H PRN PRN Reason: Nausea And Vomiting Last Admin: 03/05/17 14:29 Dose: 4 mg Oxycodone/Acetaminophen (Percocet 5/325) 1 tab PO Q6H PRN PRN Reason: Pain Simvastatin (Zocor) 20 mg PO QHS [facility] Last Admin: 03/05/17 21:40 Dose: Not Given Spironolactone (Aldactone) 25 mg PO QDAY [facility] Last Admin: 03/06/17 09:46 Dose: Not Given Vancomycin HCl (Vancomycin Pharmacy To Dose) 1 each IV PKCONSULT [facility] PRN Reason: Protocol Review of Systems ROS unobtainable: due to mental status Exam - Constitutional Vitals: Temp Pulse Resp BP Pulse Ox 97.8 F 70 16 96/50 96 03/06/17 12:21 03/06/17 12:21 03/06/17 12:21 03/06/17 12:21 03/06/17 12:21 General appearance: Present: no acute distress - EENT Eyes: Present: PERRL, EOM intact ENT: hearing intact - Respiratory Respiratory effort: normal Respiratory: bilateral: CTA, diminished - Cardiovascular Rhythm: irregularly irregular Heart Sounds: Present: S1 & S2 - Abdominal General gastrointestinal: Present: soft, non-tender Results - Labs CBC & Chem 7: 03/06/17 07:28 03/06/17 05:31 Labs: Abnormal lab results 03/06/17 03/06/17 Range/Units 05:31 07:28 WBC 11.7 H (4.5-11.0) K/mm3 MCV 101 H (79-97) fl RDW 16.1 H (13.2-15.2) % Plt Count 67 L (140-440) K/mm3 Seg Neuts % (Manual) 86.0 H (40.0-70.0) % Lymphocytes % (Manual) 6.0 L (13.4-35.0) % Seg Neutrophils # 8.0 H (1.8-7.7) K/mm3 Seg Neutrophils # Man 10.1 H (1.8-7.7) K/mm3 Lymphocytes # (Manual) 0.7 L (1.2-5.4) K/mm3 Sodium 147 H (137-145) mmol/L Carbon Dioxide 35 H (22-30) mmol/L BUN 43 H (7-17) mg/dL Creatinine 1.4 H (0.7-1.2) mg/dL Glucose 120 H (65-100) mg/dL Assessment and Plan 1. Oropharyngeal dysphagia - possibly due to weakness and progressive dementia. Discussed with Adina, pt's daughter. - will place PEG - will ask for Cardiology opinion Discussed with family and she agrees.
[2017-03-06] MEDS: ZOCOR PO SCH (22:27)
[2017-03-07] MEDS ORDERED: ePHEDrine SULFATE ONE ×2 (00:24→13:58)
[2017-03-07] MEDS: ZOSYN/NS 4.5GM/100ML 4.5 GM/100 ML VIAL IV SCH ×3 (06:32→22:27)
[2017-03-07] MEDS: D5/0.45NS 1,000 ML IV SCH (06:33)
[2017-03-07 08:15] LABS: Basophils % (Auto) 0.3 % (0.0-1.8); Eosinophils % (Auto) 1.5 % (0.0-4.3); Hemoglobin 11.9 gm/dl (10.1-14.3); Mean Corpuscular HGB Conc 32 % (30-34); Mean Corpuscular Hemoglobin 32 pg (28-32); Mean Corpuscular Volume 99 fl (79-97); Red Blood Count 3.73 M/mm3 (3.65-5.03); Red Cell Distribution Width 15.6 % (13.2-15.2); White Blood Count 10.6 K/mm3 (4.5-11.0)
[2017-03-07 08:34] LABS: BUN/Creatinine Ratio 31.25; Calcium 10.5 mg/dL (8.4-10.2); Chloride 106.2 mmol/L (98-107)
--- NOTE | 2017-03-07 08:57 | Anesthesia Day of Surgery ---
Anesthesia Day of Surgery - Day of Surgery Patient Examined: Yes Patient H&P Reviewed: Yes Patient is NPO: Yes Beta Blockers: Yes (Coreg given 03/06 2200)
--- NOTE | 2017-03-07 08:57 | Anesthesia Consultation ---
Anesthesia Consult and Med Hx Date of service: 03/07/17 - Airway ROM Head & Neck: Adequate Mental/Hyoid Distance: Adequate Mallampati Class: Class II Intubation Access Assessment: Probably Good - Pulmonary Exam CTA: Yes - Cardiac Exam Cardiac Exam: No Murmur - Pre-Operative Health Status ASA Pre-Surgery Classification: ASA3 Proposed Anesthetic Plan: General, MAC - Pulmonary COPD: Yes - Cardiovascular System Hx Hypertension: Yes Hx Pacemaker: Yes Hx Internal Defibrillator: Yes (EF 45-50%) - Central Nervous System Hx Psychiatric Problems: Yes (Dementia, Depression) - Endocrine Hx Insulin Dependent Diabetes: No
[2017-03-07] MEDS: BABY ASPIRIN PO SCH (09:31)
[2017-03-07] MEDS: MUCINEX ER PO SCH ×2 (09:32→22:28)
[2017-03-07] MEDS: ALDACTONE PO SCH (09:32)
[2017-03-07] MEDS: COREG PO SCH ×2 (09:32→22:28)
[2017-03-07] MEDS: NAMENDA XR PO SCH (09:32)
[2017-03-07 09:53] LABS: Potassium 3.7 mmol/L (3.6-5.0)
[2017-03-07 10:02] LABS: Platelet Count 55 K/mm3 (140-440)
--- NOTE | 2017-03-07 10:02 | Event Note ---
Date: 03/07/17 Pt is followed by [facility]. Cardiology consult deferred. [facility] notified. Jason CHAN NP / DR. ARECHIGA
--- NOTE | 2017-03-07 10:09 | Query- Pneumonia Documented ---
Shubham Argueta Maria Luz Date:____03/07/17 Lighting Engineering Technician/CDS:__Ryan Gutiérrezdian Phone#:[phone] Exercise your independent professional judgment when responding to query. Questions asked do not imply a particular answer is desired or expected. We greatly appreciate your clarification on this issue. Clinical Documentation States: 86 year old female was admitted on 03/03/17. The consult note (03/06/17) states " Oropharyngeal dysphagia - possibly due to weakness and progressive dementia. " The hospitalist progress note (03/06/17) states " Assessment and plan: Healthcare Associated pneumonia involving both lower lobes, Failed swallow evaluation " The hospitalist progress note (03/05/17) states " Assessment and plan: Chocking episode " Medications: Vancomycin, Piperacillin/Trazobactam Please further specify known or suspected Etiology: [x ] Aspiration Pneumonia [ ] Gram Negative Pneumonia [ ] Gram Positive Pneumonia [ x] Pseudomonas Pneumonia [ ] MRSA - related Pneumonia [ ] Viral Pneumonia [ ] Candidal Pneumonia [ ] Other: [ ] Unable to determine Present on Admission: [ x] Yes (Y) [ ] Clinically undeterminable (W) [ ] No (N) Please also document response in your Progress Notes and/or Discharge Summary and indicate if the condition was present on admission. UNAD
--- NOTE | 2017-03-07 10:18 | Query- Renal Failure ---
Shubham Argueta____Maria Luz Date: 03/07/17 Motor And Controls Tester/CDS:___Izabelatiffanie Donal Phone#:[phone] Exercise your independent professional judgment when responding to query. Questions asked do not imply a particular answer is desired or expected. We greatly appreciate your clarification on this issue. Clinical Documentation States: 86 year old female was admitted on 03/03/17. The hospitalist note (03/06/17) states " Assessment and plan: AUGUSTA " Clinical Findings Show: 03/03/17 03/07/17 Creatinine: 1.2 1.6 Please clarify if you mean: Acute Renal Failure with or due to: [ ] Tubular Necrosis [ ] Medullary Necrosis [ x] Vasomotor Nephropathy [ ] Shock Kidney [ ] Tubular Nephrosis [ ] Renal Tubular Stasis [ ] Cortical Necrosis [ ] Lower Tubular Nephrosis [ ] Other: [ ] Not Applicable Present on Admission: [ ] Yes (Y) [ ] Clinically undeterminable (W) [x ] No (N) Please also document response in your Progress Notes and/or Discharge Summary and indicate if the condition was present on admission. MTDD
--- NOTE | 2017-03-07 10:45 | Consultation ---
History of Present Illness Consult date: 03/07/17 Consult reason: pre op evaluation History of present illness: Patient is an 86yr old correction resident who was sent to the ED with failure to thrive. 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 She failed the modified barium swallow test and is need an PEG tube placed. Cardiac consultation is requested for risk assessment. Patient is known to [facility]. She has a history of Nonischemic cardiomyopathy and has a cardiac defibrillator in situ. Left ventricular systolic function has improved to 45-50% on echocardiogram this admission. She also has a cardiac history of persistent atrial fibrillation and is on aspirin therapy. She is not on anticoagulation due to history of falls. Past History Past Medical History: atrial fib, heart failure (LVEF = 45-50%), hypertension, other (AICD) Past Surgical History: appendectomy, hysterectomy Social history: . denies: smoking, alcohol abuse Family history: no significant family history Medications and Allergies Allergies Allergy/AdvReac Type Severity Reaction Status Date / Time codeine Allergy Headache Verified 03/03/17 19:33 Iodine and Iodide Containing Allergy Rash Verified 03/03/17 19:33 Produc Sulfa (Sulfonamide Allergy Hives Verified 03/03/17 19:33 Antibiotics) Home Medications Medication Instructions Recorded Confirmed Last Taken Type ALBUTEROL Inhaler [Proair] 2 puff IH QID 03/04/17 03/04/17 1 Day Ago History Aspirin 81 mg PO DAILY 03/04/17 03/04/17 1 Day Ago History Coreg 12.5 mg PO DAILY 03/04/17 03/04/17 1 Day Ago History Doxycycline 100 mg PO DAILY 03/04/17 03/04/17 1 Day Ago History Lasix TAB 20 mg PO DAILY 03/04/17 03/04/17 1 Day Ago History Levaquin TAB 750 mg PO DAILY 03/04/17 03/04/17 1 Day Ago History Lisinopril [Zestril TAB] 40 mg PO DAILY 03/04/17 03/04/17 1 Day Ago History Namenda 7 mg PO DAILY 03/04/17 03/04/17 1 Day Ago History Simvastatin 20 mg PO QHS 03/04/17 03/04/17 1 Day Ago History Spironolactone 25 mg PO DAILY 03/04/17 03/04/17 1 Day Ago History guaiFENesin [Mucinex] 600 mg PO Q12HR 03/04/17 03/04/17 1 Day Ago History Active Meds: Active Medications Acetaminophen (Tylenol) 650 mg PO Q6H PRN PRN Reason: For Pain/Fever/Headache Aspirin (Baby Aspirin) 81 mg PO QDAY [facility] Last Admin: 03/07/17 09:31 Dose: 81 mg Carvedilol (Coreg) 12.5 mg PO BID [facility] Last Admin: 03/07/17 09:32 Dose: 12.5 mg Guaifenesin (Mucinex Er) 600 mg PO Q12HR [facility] Last Admin: 03/07/17 09:32 Dose: 600 mg Vancomycin HCl 1,250 mg/ (Sodium Chloride) 275 mls @ 166.667 mls/hr IV Q24H [facility] Last Admin: 03/06/17 14:28 Dose: 166.667 mls/hr Piperacillin Sod/Tazobactam Sod (Zosyn/Ns 4.5gm/100ml) 4.5 gm in 100 mls @ 200 mls/hr IV Q8HR [facility] PRN Reason: Protocol Last Admin: 03/07/17 06:32 Dose: 200 mls/hr Dextrose/Sodium Chloride (D5/0.45ns) 1,000 mls @ 75 mls/hr IV DIRECT [facility] Last Admin: 03/07/17 06:33 Dose: 75 mls/hr Memantine (Namenda Xr) 7 mg PO QDAY [facility] Last Admin: 03/07/17 09:32 Dose: 7 mg Ondansetron HCl (Zofran) 4 mg IV Q6H PRN PRN Reason: Nausea And Vomiting Last Admin: 03/05/17 14:29 Dose: 4 mg Oxycodone/Acetaminophen (Percocet 5/325) 1 tab PO Q6H PRN PRN Reason: Pain Simvastatin (Zocor) 20 mg PO QHS [facility] Last Admin: 03/06/17 22:27 Dose: 20 mg Spironolactone (Aldactone) 25 mg PO QDAY [facility] Last Admin: 03/07/17 09:32 Dose: Not Given Vancomycin HCl (Vancomycin Pharmacy To Dose) 1 each IV PKCONSULT [facility] PRN Reason: Protocol Physical Examination Vital Signs Pulse Ox 95 03/03/17 19:20 General appearance: no acute distress Cardiac: Positive: Other (Paced) Lungs: Positive: Decreased Breath Sounds Results 03/07/17 04:00 03/07/17 04:00 CBC 03/07/17 Range/Units 04:00 WBC 10.6 (4.5-11.0) K/mm3 RBC 3.73 (3.65-5.03) M/mm3 Hgb 11.9 (10.1-14.3) gm/dl Hct 37.0 (30.3-42.9) % Plt Count 55 L (140-440) K/mm3 Lymph # 2.6 (1.2-5.4) K/mm3 [place] # 0.9 H (0.0-0.8) K/mm3 Eos # 0.2 (0.0-0.4) K/mm3 Baso # 0.0 (0.0-0.1) K/mm3 Comprehensive Metabolic Panel 03/07/17 Range/Units 04:00 Sodium 149 H (137-145) mmol/L Potassium 3.7 (3.6-5.0) mmol/L Chloride 106.2 (98-107) mmol/L Carbon Dioxide 33 H (22-30) mmol/L BUN 50 H (7-17) mg/dL Creatinine 1.6 H (0.7-1.2) mg/dL Glucose 146 H (65-100) mg/dL Calcium 10.5 H (8.4-10.2) mg/dL Assessment and Plan Failure to thrive Dysphagia Pneumonia Pre-operative cardiac risk assessment Nonischemic CMP, EF improved to 45-50% on echo this admission Presence of AICD s/p generator replaced 10/2015 Permanent Atrial fibrillation off anticoagulation due to history of falls. On aspirin therapy. Hypertension
[2017-03-07] MEDS: VANCOMYCIN 1,250 MG in NACL 0.9% 250ML 250 ML IV SCH (12:00)
[2017-03-07] MEDS ORDERED: WATER FOR IRRIG STERILE IR ONE (12:08)
[2017-03-07] MEDS ORDERED: NACL 0.9% 1000 ML 1,000 ML ONE (12:09)
[2017-03-07] MEDS ORDERED: WATER FOR IRRIG STERILE ONE (12:09)
[2017-03-07] MEDS ORDERED: ANCEF/STERILE WATER 2 GM/20 ML 2 GM/20 ML SYRINGE IV ONE (12:52)
[2017-03-07] MEDS ORDERED: NACL 0.9% 1000 ML 1,000 ML IV SCH (13:00)
[2017-03-07] MEDS ORDERED: ANCEF/STERILE WATER 2 GM/20 ML 2 GM/20 ML SYRINGE IV NR (13:00)
[2017-03-07] MEDS ORDERED: SUBLIMAZE ONE (13:24)
[2017-03-07] MEDS ORDERED: AMIDATE IV ONE (13:24)
--- NOTE | 2017-03-07 14:20 | Progress Note ---
Assessment and Plan Assessment and plan: Healthcare Associated pneumonia involving both lower lobes Dementia Mild dehydration [place]UG[place]A Failed swallow evaluation Left leg pain Diastolic dysfunction - Patient is on IV vancomycin and Zosyn - Supportive care for dementia - Doppler U/S of the left leg - NPO, needs PEG, [facility] gastro consulted - Barium swallow evaluation - On D5 half NS 100ml/hr Disposition - Continue inpatient care - Family expressed not happy in the current [facility] so they want to change - information systems security manager and director social welfare involved with placement History Interval history: Patient was seen and evaluated this morning. Patient was somnolent. Patient failed barium swallow evaluation and discussed about the result with family members. Scheduled to have PEG today. Hospitalist Physical - Physical exam Narrative exam: Not in cardiopulmonary distress. The patient appeared well nourished and normally developed. Vital signs as documented. Head exam is unremarkable. No scleral icterus . Neck is without jugular venous distension, thyromegaly, or carotid bruits. Lungs are clear to auscultation. Cardiac exam reveals regular rate and Rhythm. First and second heart sounds normal. No murmurs, rubs or gallops. Abdominal exam reveals normal bowel sounds, no masses, no organomegaly and no aortic enlargement. Extremities are nonedematous and both femoral and pedal pulses are normal. DIABETES TRAINER: lethargic. - Constitutional Vitals: Temp Pulse Resp BP Pulse Ox 96.8 F L 70 20 104/47 98 03/07/17 13:17 03/07/17 13:17 03/07/17 13:17 03/07/17 13:17 03/07/17 13:17 General appearance: Present: no acute distress Results - Labs CBC & Chem 7: 03/07/17 04:00 03/07/17 04:00 Labs: Laboratory Last Values WBC 10.6 K/mm3 (4.5-11.0) 03/07/17 04:00 RBC 3.73 M/mm3 (3.65-5.03) 03/07/17 04:00 Hgb 11.9 gm/dl (10.1-14.3) 03/07/17 04:00 Hct 37.0 % (30.3-42.9) 03/07/17 04:00 MCV 99 fl (79-97) H 03/07/17 04:00 MCH 32 pg (28-32) 03/07/17 04:00 MCHC 32 % (30-34) 03/07/17 04:00 RDW 15.6 % (13.2-15.2) H 03/07/17 04:00 Plt Count 55 K/mm3 (140-440) L 03/07/17 04:00 Lymph % (Auto) 24.9 % (13.4-35.0) 03/07/17 04:00 [place] % (Auto) 8.1 % (0.0-7.3) H 03/07/17 04:00 Eos % (Auto) 1.5 % (0.0-4.3) 03/07/17 04:00 Baso % (Auto) 0.3 % (0.0-1.8) 03/07/17 04:00 Lymph # 2.6 K/mm3 (1.2-5.4) 03/07/17 04:00 [place] # 0.9 K/mm3 (0.0-0.8) H 03/07/17 04:00 Eos # 0.2 K/mm3 (0.0-0.4) 03/07/17 04:00 Baso # 0.0 K/mm3 (0.0-0.1) 03/07/17 04:00 Add Manual Diff Complete 03/06/17 07:28 Total Counted 100 03/06/17 07:28 Seg Neutrophils % 65.2 % (40.0-70.0) 03/07/17 04:00 Seg Neuts % (Manual) 86.0 % (40.0-70.0) H 03/06/17 07:28 Band Neutrophils % 4.0 % 03/06/17 07:28 Lymphocytes % (Manual) 6.0 % (13.4-35.0) L 03/06/17 07:28 Reactive Lymphs % (Man) 0 % 03/06/17 07:28 Monocytes % (Manual) 4.0 % (0.0-7.3) 03/06/17 07:28 Eosinophils % (Manual) 0 % (0.0-4.3) 03/06/17 07:28 Basophils % (Manual) 0 % (0.0-1.8) 03/06/17 07:28 Metamyelocytes % 0 % 03/06/17 07:28 Myelocytes % 0 % 03/06/17 07:28 Promyelocytes % 0 % 03/06/17 07:28 Blast Cells % 0 % 03/06/17 07:28 Nucleated RBC % Not Reportable 03/06/17 07:28 Seg Neutrophils # 6.9 K/mm3 (1.8-7.7) 03/07/17 04:00 Seg Neutrophils # Man 10.1 K/mm3 (1.8-7.7) H 03/06/17 07:28 Band Neutrophils # 0.5 K/mm3 03/06/17 07:28 Lymphocytes # (Manual) 0.7 K/mm3 (1.2-5.4) L 03/06/17 07:28 Abs React Lymphs (Man) 0.0 K/mm3 03/06/17 07:28 Monocytes # (Manual) 0.5 K/mm3 (0.0-0.8) 03/06/17 07:28 Eosinophils # (Manual) 0.0 K/mm3 (0.0-0.4) 03/06/17 07:28 Basophils # (Manual) 0.0 K/mm3 (0.0-0.1) 03/06/17 07:28 Metamyelocytes # 0.0 K/mm3 03/06/17 07:28 Myelocytes # 0.0 K/mm3 03/06/17 07:28 Promyelocytes # 0.0 K/mm3 03/06/17 07:28 Blast Cells # 0.0 K/mm3 03/06/17 07:28 WBC Morphology Not Reportable 03/06/17 07:28 Hypersegmented Neuts Not Reportable 03/06/17 07:28 Hyposegmented Neuts Not Reportable 03/06/17 07:28 Hypogranular Neuts Not Reportable 03/06/17 07:28 Smudge Cells Not Reportable 03/06/17 07:28 Toxic Granulation Not Reportable 03/06/17 07:28 Toxic Vacuolation Not Reportable 03/06/17 07:28 Dohle Bodies Not Reportable 03/06/17 07:28 Pelger-Huet Anomaly Not Reportable 03/06/17 07:28 Lu Rods Not Reportable 03/06/17 07:28 Platelet Estimate Not Reportable 03/06/17 07:28 Clumped Platelets Not Reportable 03/06/17 07:28 Plt Clumps, EDTA Not Reportable 03/06/17 07:28 Large Platelets Not Reportable 03/06/17 07:28 Giant Platelets Not Reportable 03/06/17 07:28 Platelet Satelliting Not Reportable 03/06/17 07:28 Plt Morphology Comment Not Reportable 03/06/17 07:28 RBC Morphology Not Reportable 03/06/17 07:28 Dimorphic RBCs Not Reportable 03/06/17 07:28 Polychromasia Not Reportable 03/06/17 07:28 Hypochromasia Not Reportable 03/06/17 07:28 Poikilocytosis Few 03/06/17 07:28 Anisocytosis Few 03/06/17 07:28 Microcytosis Not Reportable 03/06/17 07:28 Macrocytosis Not Reportable 03/06/17 07:28 Spherocytes Not Reportable 03/06/17 07:28 Pappenheimer Bodies Not Reportable 03/06/17 07:28 Sickle Cells Not Reportable 03/06/17 07:28 Target Cells Not Reportable 03/06/17 07:28 Tear Drop Cells Not Reportable 03/06/17 07:28 Ovalocytes Not Reportable 03/06/17 07:28 Helmet Cells Not Reportable 03/06/17 07:28 [place] Bodies Not Reportable 03/06/17 07:28 [place] Rings Not Reportable 03/06/17 07:28 [place] Cells Not Reportable 03/06/17 07:28 Bite Cells Not Reportable 03/06/17 07:28 Crenated Cell Not Reportable 03/06/17 07:28 Elliptocytes Not Reportable 03/06/17 07:28 Acanthocytes (Spur) Not Reportable 03/06/17 07:28 Rouleaux Not Reportable 03/06/17 07:28 Hemoglobin C Crystals Not Reportable 03/06/17 07:28 Schistocytes Not Reportable 03/06/17 07:28 Malaria parasites Not Reportable 03/06/17 07:28 Steven Bodies Not Reportable 03/06/17 07:28 Hem Pathologist Commnt No 03/06/17 07:28 PT 15.5 Sec. (12.2-14.9) H 03/03/17 20:03 INR 1.24 (0.87-1.13) H 03/03/17 20:03 APTT 34.0 Sec. (24.2-36.6) 03/03/17 20:03 Heparin Anti-Xa Level 0.98 U.I./ml (0.3-0.7) H 03/05/17 04:09 Sodium 149 mmol/L (137-145) H 03/07/17 04:00 Potassium 3.7 mmol/L (3.6-5.0) 03/07/17 04:00 Chloride 106.2 mmol/L (98-107) 03/07/17 04:00 Carbon Dioxide 33 mmol/L (22-30) H 03/07/17 04:00 Anion Gap 14 mmol/L 03/07/17 04:00 BUN 50 mg/dL (7-17) H 03/07/17 04:00 Creatinine 1.6 mg/dL (0.7-1.2) H 03/07/17 04:00 Estimated GFR 30 ml/min 03/07/17 04:00 BUN/Creatinine Ratio 31.25 % 03/07/17 04:00 Glucose 146 mg/dL (65-100) H 03/07/17 04:00 Calcium 10.5 mg/dL (8.4-10.2) H 03/07/17 04:00 Total Bilirubin 0.70 mg/dL (0.1-1.2) 03/03/17 19:43 AST 24 units/L (5-40) 03/03/17 19:43 ALT 11 units/L (7-56) 03/03/17 19:43 Alkaline Phosphatase 91 units/L (35-129) 03/03/17 19:43 NT-Pro-B Natriuret Pep 5035 pg/mL (0-900) H 03/03/17 19:43 Total Protein 5.8 g/dL (6.3-8.2) L 03/03/17 19:43 Albumin 3.1 g/dL (3.9-5) L 03/03/17 19:43 Albumin/Globulin Ratio 1.1 % 03/03/17 19:43 TSH 0.359 mlU/mL (0.270-4.200) 03/03/17 20:15 Free T4 1.96 ng/dL (0.76-1.46) H 03/03/17 20:15 Urine Color Yellow (Yellow) 03/03/17 23:21 Urine Turbidity Clear (Clear) 03/03/17 23:21 Urine pH 5.0 (5.0-7.0) 03/03/17 23:21 Ur Specific [place] 1.015 (1.003-1.030) 03/03/17 23:21 Urine Protein <15 mg/dl mg/dL (Negative) 03/03/17 23:21 Urine Glucose (UA) Neg mg/dL (Negative) 03/03/17 23:21 Urine Ketones Neg mg/dL (Negative) 03/03/17 23:21 Urine Blood Sm (Negative) 03/03/17 23:21 Urine Nitrite Neg (Negative) 03/03/17 23:21 Urine Bilirubin Neg (Negative) 03/03/17 23:21 Urine Urobilinogen < 2.0 mg/dL (<2.0) 03/03/17 23:21 Ur Leukocyte Esterase Tr (Negative) 03/03/17 23:21 Urine WBC (Auto) 6.0 /HPF (0.0-6.0) 03/03/17 23:21 Urine RBC (Auto) < 1.0 /HPF (0.0-6.0) 03/03/17 23:21 U Epithel Cells (Auto) 5.0 /HPF (0-13.0) 03/03/17 23:21 Urine Bacteria (Auto) 2+ /HPF (Negative) 03/03/17 23:21 Hyaline Casts 10 /LPF 03/03/17 23:21 Urine Mucus 3+ /HPF 03/03/17 23:21 Hepatitis A IgM Ab Non-reactive (NonReactive) 03/03/17 20:15 Hep B Core IgM Ab Non-reactive (NonReactive) 03/03/17 20:15 Hepatitis C Antibody Non-reactive (NonReactive) 03/03/17 20:15 HIV 1&2 Antibody Rapid Non react (Non React) 03/03/17 20:15 HIV P24 Antigen Non react (Non React) 03/03/17 20:15
--- NOTE | 2017-03-07 14:25 | Post Operative Note ---
Date of procedure: 03/07/17 Pre-op diagnosis: Malnutrition, poor po intake Post-op diagnosis: other (Distal ulcerative esophagitis, successful G-tube placement) Findings: 1. White based ulcers, broadly linear, in distal esophagus. 2. O/w normal EGD. 3. Successful G-tube placement. Procedure: EGD/PEG Anesthesia: MAC Surgeon: SUE KEITH Estimated blood loss: minimal Pathology: none Condition: other (with low BP responding to IVFs) Disposition: floor (IV fluids and monitor BP)
--- NOTE | 2017-03-07 15:06 | Post Anesthesia Evaluation ---
- Post Anesthesia Evaluation Patient Participated: Yes Airway Patent: Yes Stable Respiratory Function: Yes Nausea/Vomiting: No Temp > 96.8F: Yes Pain Manageable: Yes Adequeate Hydration: Yes Anesthesia Complications: No Block Receding Appropriately: Not Applicable Patient on Ventilator: No
--- NOTE | 2017-03-07 20:34 | Operative Report ---
PROCEDURE: Upper endoscopy with G-tube placement. PREOPERATIVE DIAGNOSIS: Oropharyngeal dysphagia. POSTOPERATIVE DIAGNOSES: Successful G-tube placement and ulcerative esophagitis. SEDATION: MAC by Anesthesia. HISTORY: The patient is an 86-year-old woman who has dementia and heart disease. She recently developed a bilateral pneumonia. She has failed modified barium swallow and consult was requested for G-tube placement. DESCRIPTION OF PROCEDURE: Indications, risks, and benefits were explained and consent was obtained. The patient was placed in left lateral decubitus position and sedated. [employer] video upper scope was passed through the mouth and oropharynx into the descending duodenum. Scope was then gradually withdrawn into the gastric lumen. An appropriate location was transilluminated in the abdominal wall after insufflation. This was confirmed with 1:1 ballottement. This was prepped and draped in a sterile fashion. Skin was infiltrated with lidocaine using wound safe-tract technique. Trocar was then placed percutaneously into the gastric lumen and a guidewire was passed through. This was grasped with a snare and pulled out the mouth. Then, a 20-Congolese pull type G-tube was attached to the wire and pulled through the mouth and oropharynx into the gastric lumen and out the skin. External bumper was fixed at 2.5 cm. Placement was confirmed by repeat upper endoscopy. FINDINGS: 1. Ulcerative esophagitis with broad-based, linear, white-based ulcers noted in the distal 5 cm of the esophagus. Remainder of esophagus was normal. 2. Normal gastric antrum, fundus, body, and cardia. 3. Normal appearing duodenal bulb and duodenum. 4. Successful 20-Congolese G-tube placement. The patient tolerated the procedure well without immediate complications. ESTIMATED BLOOD LOSS: Less than 5 mL. IMPRESSION: 1. Ulcerative esophagitis. 2. Successful G-tube placement. PLAN: Initiate tube feedings as per Dietary. JOB# [id number] HRC/NTS
[2017-03-07] MEDS: ZOCOR PO SCH (22:28)
[2017-03-08] MEDS: D5/0.45NS 1,000 ML IV SCH (02:32)
[2017-03-08] MEDS ORDERED: ALUM-MAG HYDROX-SIMETH 200-200-20MG/5ML PO PRN (03:07)
[2017-03-08] MEDS: ZOSYN/NS 4.5GM/100ML 4.5 GM/100 ML VIAL IV SCH ×3 (06:58→21:20)
[2017-03-08 08:03] LABS: BUN/Creatinine Ratio 31.25; Calcium 10.2 mg/dL (8.4-10.2); Chloride 106.8 mmol/L (98-107); Potassium 3.5 mmol/L (3.6-5.0)
[2017-03-08 08:15] LABS: Hematocrit 35.2 % (30.3-42.9); Mean Corpuscular HGB Conc 31 % (30-34); Mean Corpuscular Hemoglobin 31 pg (28-32); Mean Corpuscular Volume 99 fl (79-97); Red Blood Count 3.54 M/mm3 (3.65-5.03); Red Cell Distribution Width 15.7 % (13.2-15.2); White Blood Count 11.4 K/mm3 (4.5-11.0)
[2017-03-08 08:26] LABS: Platelet Count 59 K/mm3 (140-440)
[2017-03-08] MEDS ORDERED: SODIUM BICARBONATE FEEDTUBE PRN (08:40)
[2017-03-08] MEDS ORDERED: SIMPLE SYRUP FEEDTUBE PRN ×2 (08:40)
[2017-03-08] MEDS ORDERED: PANCREAZE DR 10,500 UNIT FEEDTUBE PRN (08:40)
[2017-03-08] MEDS: ALDACTONE PO SCH (09:03)
[2017-03-08] MEDS: NAMENDA XR PO SCH (09:03)
[2017-03-08] MEDS: PROTONIX PO SCH (09:03)
[2017-03-08] MEDS: BABY ASPIRIN PO SCH (09:03)
[2017-03-08] MEDS: COREG PO SCH ×2 (09:03→21:21)
[2017-03-08] MEDS: MUCINEX ER PO SCH ×2 (09:03→21:21)
[2017-03-08 12:03] LABS: Anisocytosis 1+; Basophils % (Manual) 0 % (0.0-1.8); Blastocytes % (Manual) 0 %; Diff Status Complete; Eosinophils % (Manual) 0 % (0.0-4.3); Platelet Estimate Consistent w Auto
--- NOTE | 2017-03-08 12:36 | Progress Note ---
Assessment and Plan - Patient Problems (1) Pre-op evaluation Current Visit: Yes Status: Acute Plan to address problem: Patient is postoperative PEG tube placement. No immediate postoperative cardiac problems. Overall, conservative cardiac management. Subjective Date of service: 03/08/17 Interval history: Patient is status post PEG tube placement, no cardiac complaints. Objective Vital Signs Temp Pulse Pulse Pulse Pulse Resp BP 03/08/17 11:34 76 03/08/17 10:00 03/08/17 08:00 97.4 F L 72 22 03/08/17 04:35 97.4 F L 71 18 03/08/17 01:11 97.4 F L 77 20 03/07/17 22:28 102 H 109/51 03/07/17 22:00 70 03/07/17 21:17 03/07/17 20:43 98.5 F 84 17 03/07/17 18:56 97.1 F L 60 18 03/07/17 15:29 98.8 F 72 16 03/07/17 15:00 80 19 112/40 03/07/17 14:30 82 18 103/47 03/07/17 14:15 96.8 F L 74 19 112/44 03/07/17 13:17 96.8 F L 70 20 104/47 03/07/17 12:46 96.8 F L 70 20 104/47 BP Pulse Ox 03/08/17 11:34 03/08/17 10:00 96 03/08/17 08:00 93/53 97 03/08/17 04:35 108/53 97 03/08/17 01:11 90/54 94 03/07/17 22:28 03/07/17 22:00 03/07/17 21:17 94 03/07/17 20:43 109/51 92 03/07/17 18:56 112/54 92 03/07/17 15:29 96/55 100 03/07/17 15:00 100 03/07/17 14:30 100 03/07/17 14:15 100 03/07/17 13:17 98 03/07/17 12:46 98 - Physical Examination General: Cachectic, Other (frail, elderly, and O2 facemask) HEENT: Positive: PERRL Neck: Positive: neck supple Cardiac: Positive: Reg Rate and Rhythm Lungs: Positive: Decreased Breath Sounds Neuro: Positive: Weakness Abdomen: Positive: Soft Skin: Positive: Clear Extremities: Absent: edema - Labs and Meds CBC 03/08/17 Range/Units 06:48 WBC 11.4 H (4.5-11.0) K/mm3 RBC 3.54 L (3.65-5.03) M/mm3 Hgb 11.0 (10.1-14.3) gm/dl Hct 35.2 (30.3-42.9) % Plt Count 59 L (140-440) K/mm3 Comprehensive Metabolic Panel 03/08/17 Range/Units 06:48 Sodium 150 H (137-145) mmol/L Potassium 3.5 L (3.6-5.0) mmol/L Chloride 106.8 (98-107) mmol/L Carbon Dioxide 32 H (22-30) mmol/L BUN 50 H (7-17) mg/dL Creatinine 1.6 H (0.7-1.2) mg/dL Glucose 118 H (65-100) mg/dL Calcium 10.2 (8.4-10.2) mg/dL
[2017-03-08] MEDS: VANCOMYCIN 1,250 MG in NACL 0.9% 250ML 250 ML IV SCH (12:47)
--- NOTE | 2017-03-08 14:24 | Progress Note ---
Assessment and Plan Assessment and plan: Healthcare Associated pneumonia involving both lower lobes Dementia Dehydration [place] Failed swallow evaluation s/p PEG placement Diastolic dysfunction - Patient is on IV vancomycin and Zosyn - Supportive care for dementia - S/P PEG placement, software systems engineer consulted - Gentle hydration Disposition - Continue inpatient care - Family expressed not happy in the current senior care so they want to change - manager it training and social insurance administrator involved with placement History Interval history: Patient was seen and evaluated this morning. Patient is lethargic. Patient is S/P PEG placement. Hospitalist Physical - Physical exam Narrative exam: Not in cardiopulmonary distress. The patient appeared well nourished and normally developed. Vital signs as documented. Head exam is unremarkable. No scleral icterus . Neck is without jugular venous distension, thyromegaly, or carotid bruits. Lungs are clear to auscultation. Cardiac exam reveals regular rate and Rhythm. First and second heart sounds normal. No murmurs, rubs or gallops. Abdominal exam reveals normal bowel sounds, no masses, no organomegaly and no aortic enlargement. Extremities are nonedematous and both femoral and pedal pulses are normal. 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 - Constitutional Vitals: Temp Pulse Resp BP Pulse Ox 97.2 F L 68 22 90/52 97 03/08/17 12:00 03/08/17 12:00 03/08/17 12:00 03/08/17 12:00 03/08/17 12:00 General appearance: Present: no acute distress Results - Labs CBC & Chem 7: 03/08/17 06:48 03/08/17 06:48 Labs: Laboratory Last Values WBC 11.4 K/mm3 (4.5-11.0) H 03/08/17 06:48 RBC 3.54 M/mm3 (3.65-5.03) L 03/08/17 06:48 Hgb 11.0 gm/dl (10.1-14.3) 03/08/17 06:48 Hct 35.2 % (30.3-42.9) 03/08/17 06:48 MCV 99 fl (79-97) H 03/08/17 06:48 MCH 31 pg (28-32) 03/08/17 06:48 MCHC 31 % (30-34) 03/08/17 06:48 RDW 15.7 % (13.2-15.2) H 03/08/17 06:48 Plt Count 59 K/mm3 (140-440) L 03/08/17 06:48 Lymph % (Auto) 24.9 % (13.4-35.0) 03/07/17 04:00 [place] % (Auto) 8.1 % (0.0-7.3) H 03/07/17 04:00 Eos % (Auto) 1.5 % (0.0-4.3) 03/07/17 04:00 Baso % (Auto) 0.3 % (0.0-1.8) 03/07/17 04:00 Lymph # 2.6 K/mm3 (1.2-5.4) 03/07/17 04:00 [place] # 0.9 K/mm3 (0.0-0.8) H 03/07/17 04:00 Eos # 0.2 K/mm3 (0.0-0.4) 03/07/17 04:00 Baso # 0.0 K/mm3 (0.0-0.1) 03/07/17 04:00 Add Manual Diff Complete 03/08/17 06:48 Total Counted 100 03/08/17 06:48 Seg Neutrophils % 65.2 % (40.0-70.0) 03/07/17 04:00 Seg Neuts % (Manual) 80.0 % (40.0-70.0) H 03/08/17 06:48 Band Neutrophils % 0 % 03/08/17 06:48 Lymphocytes % (Manual) 11.0 % (13.4-35.0) L 03/08/17 06:48 Reactive Lymphs % (Man) 0 % 03/08/17 06:48 Monocytes % (Manual) 9.0 % (0.0-7.3) H 03/08/17 06:48 Eosinophils % (Manual) 0 % (0.0-4.3) 03/08/17 06:48 Basophils % (Manual) 0 % (0.0-1.8) 03/08/17 06:48 Metamyelocytes % 0 % 03/08/17 06:48 Myelocytes % 0 % 03/08/17 06:48 Promyelocytes % 0 % 03/08/17 06:48 Blast Cells % 0 % 03/08/17 06:48 Nucleated RBC % Not Reportable 03/08/17 06:48 Seg Neutrophils # 6.9 K/mm3 (1.8-7.7) 03/07/17 04:00 Seg Neutrophils # Man 9.1 K/mm3 (1.8-7.7) H 03/08/17 06:48 Band Neutrophils # 0.0 K/mm3 03/08/17 06:48 Lymphocytes # (Manual) 1.3 K/mm3 (1.2-5.4) 03/08/17 06:48 Abs React Lymphs (Man) 0.0 K/mm3 03/08/17 06:48 Monocytes # (Manual) 1.0 K/mm3 (0.0-0.8) H 03/08/17 06:48 Eosinophils # (Manual) 0.0 K/mm3 (0.0-0.4) 03/08/17 06:48 Basophils # (Manual) 0.0 K/mm3 (0.0-0.1) 03/08/17 06:48 Metamyelocytes # 0.0 K/mm3 03/08/17 06:48 Myelocytes # 0.0 K/mm3 03/08/17 06:48 Promyelocytes # 0.0 K/mm3 03/08/17 06:48 Blast Cells # 0.0 K/mm3 03/08/17 06:48 WBC Morphology Not Reportable 03/08/17 06:48 Hypersegmented Neuts Not Reportable 03/08/17 06:48 Hyposegmented Neuts Not Reportable 03/08/17 06:48 Hypogranular Neuts Not Reportable 03/08/17 06:48 Smudge Cells Not Reportable 03/08/17 06:48 Toxic Granulation Not Reportable 03/08/17 06:48 Toxic Vacuolation Not Reportable 03/08/17 06:48 Dohle Bodies Not Reportable 03/08/17 06:48 Pelger-Huet Anomaly Not Reportable 03/08/17 06:48 Lu Rods Not Reportable 03/08/17 06:48 Platelet Estimate Consistent w auto 03/08/17 06:48 Clumped Platelets Not Reportable 03/08/17 06:48 Plt Clumps, EDTA Not Reportable 03/08/17 06:48 Large Platelets Not Reportable 03/08/17 06:48 Giant Platelets Not Reportable 03/08/17 06:48 Platelet Satelliting Not Reportable 03/08/17 06:48 Plt Morphology Comment Not Reportable 03/08/17 06:48 RBC Morphology Not Reportable 03/08/17 06:48 Dimorphic RBCs Not Reportable 03/08/17 06:48 Polychromasia Not Reportable 03/08/17 06:48 Hypochromasia Not Reportable 03/08/17 06:48 Poikilocytosis Not Reportable 03/08/17 06:48 Anisocytosis 1+ 03/08/17 06:48 Microcytosis Not Reportable 03/08/17 06:48 Macrocytosis Not Reportable 03/08/17 06:48 Spherocytes Not Reportable 03/08/17 06:48 Pappenheimer Bodies Not Reportable 03/08/17 06:48 Sickle Cells Not Reportable 03/08/17 06:48 Target Cells Not Reportable 03/08/17 06:48 Tear Drop Cells Not Reportable 03/08/17 06:48 Ovalocytes Not Reportable 03/08/17 06:48 Helmet Cells Not Reportable 03/08/17 06:48 Andrade-[place] Bodies Not Reportable 03/08/17 06:48 [place] Rings Not Reportable 03/08/17 06:48 [place] Cells Not Reportable 03/08/17 06:48 Bite Cells Not Reportable 03/08/17 06:48 Crenated Cell Not Reportable 03/08/17 06:48 Elliptocytes Not Reportable 03/08/17 06:48 Acanthocytes (Spur) Not Reportable 03/08/17 06:48 Rouleaux Not Reportable 03/08/17 06:48 Hemoglobin C Crystals Not Reportable 03/08/17 06:48 Schistocytes Not Reportable 03/08/17 06:48 Malaria parasites Not Reportable 03/08/17 06:48 Steven Bodies Not Reportable 03/08/17 06:48 Hem Pathologist Commnt No 03/08/17 06:48 PT 15.5 Sec. (12.2-14.9) H 03/03/17 20:03 INR 1.24 (0.87-1.13) H 03/03/17 20:03 APTT 34.0 Sec. (24.2-36.6) 03/03/17 20:03 Heparin Anti-Xa Level 0.98 U.I./ml (0.3-0.7) H 03/05/17 04:09 Sodium 150 mmol/L (137-145) H 03/08/17 06:48 Potassium 3.5 mmol/L (3.6-5.0) L 03/08/17 06:48 Chloride 106.8 mmol/L (98-107) 03/08/17 06:48 Carbon Dioxide 32 mmol/L (22-30) H 03/08/17 06:48 Anion Gap 15 mmol/L 03/08/17 06:48 BUN 50 mg/dL (7-17) H 03/08/17 06:48 Creatinine 1.6 mg/dL (0.7-1.2) H 03/08/17 06:48 Estimated GFR 30 ml/min 03/08/17 06:48 BUN/Creatinine Ratio 31.25 % 03/08/17 06:48 Glucose 118 mg/dL (65-100) H 03/08/17 06:48 Calcium 10.2 mg/dL (8.4-10.2) 03/08/17 06:48 Total Bilirubin 0.70 mg/dL (0.1-1.2) 03/03/17 19:43 AST 24 units/L (5-40) 03/03/17 19:43 ALT 11 units/L (7-56) 03/03/17 19:43 Alkaline Phosphatase 91 units/L (35-129) 03/03/17 19:43 NT-Pro-B Natriuret Pep 5035 pg/mL (0-900) H 03/03/17 19:43 Total Protein 5.8 g/dL (6.3-8.2) L 03/03/17 19:43 Albumin 3.1 g/dL (3.9-5) L 03/03/17 19:43 Albumin/Globulin Ratio 1.1 % 03/03/17 19:43 TSH 0.359 mlU/mL (0.270-4.200) 03/03/17 20:15 Free T4 1.96 ng/dL (0.76-1.46) H 03/03/17 20:15 Urine Color Yellow (Yellow) 03/03/17 23:21 Urine Turbidity Clear (Clear) 03/03/17 23:21 Urine pH 5.0 (5.0-7.0) 03/03/17 23:21 Ur Specific [place] 1.015 (1.003-1.030) 03/03/17 23: Urine Protein <15 mg/dl mg/dL (Negative) 03/03/17 23:21 Urine Glucose (UA) Neg mg/dL (Negative) 03/03/17 23:21 Urine Ketones Neg mg/dL (Negative) 03/03/17 23: Urine Blood Sm (Negative) 03/03/17 23: Urine Nitrite Neg (Negative) 03/03/17 23: Urine Bilirubin Neg (Negative) 03/03/17 23: Urine Urobilinogen < 2.0 mg/dL (<2.0) 03/03/17 23: Ur Leukocyte Esterase Tr (Negative) 03/03/17 23:21 Urine WBC (Auto) 6.0 /HPF (0.0-6.0) 03/03/17 23:21 Urine RBC (Auto) < 1.0 /HPF (0.0-6.0) 03/03/17 23: U Epithel Cells (Auto) 5.0 /HPF (0-13.0) 03/03/17 23:21 Urine Bacteria (Auto) 2+ /HPF (Negative) 03/03/17 23: Hyaline Casts 10 /LPF 03/03/17 23:21 Urine Mucus 3+ /HPF 03/03/17 23:21 Hepatitis A IgM Ab Non-reactive (NonReactive) 03/03/17 20:15 Hep B Core IgM Ab Non-reactive (NonReactive) 03/03/17 20:15 Hepatitis C Antibody Non-reactive (NonReactive) 03/03/17 20:15 HIV 1&2 Antibody Rapid Non react (Non React) 03/03/17 20:15 HIV P24 Antigen Non react (Non React) 03/03/17 20:15
[2017-03-08] MEDS ORDERED: NACL 0.9% 1000 ML 250 ML IV ONE (15:00)
--- NOTE | 2017-03-08 15:53 | Gastroenterology Progress Note ---
Assessment and Plan - Patient Problems (1) Neurogenic dysphagia Current Visit: Yes Status: Acute Plan to address problem: - Tube functioning well with no signs of complication. - Bumper loosened from 3.5cm to 4cm with no tension noted. - Will sign off; please call if needed. Subjective Date of service: 03/08/17 Principal diagnosis: Neurogenic dysphagia Interval history: The PEG feeds are at 30ml/hour, and no problems flushing tube per nursing. The patient denies abdominal pain and no fevers have been reported. Objective - Constitutional Vitals: Temp Pulse Resp BP Pulse Ox 97.2 F L 68 22 90/52 97 03/08/17 12:00 03/08/17 12:00 03/08/17 12:00 03/08/17 12:00 03/08/17 12:00 General appearance: no acute distress - EENT Eyes: PERRL, EOM intact ENT: hearing intact - Neck Neck: supple - Respiratory Respiratory effort: normal Respiratory: bilateral: CTA - Cardiovascular Rhythm: regular Heart Sounds: Present: S1 & S2 - Gastrointestinal General gastrointestinal: Present: soft, non-tender, other (PEG at 3.5 cm flushing well) - Labs CBC & Chem 7: 03/08/17 06:48 03/08/17 06:48 Labs: Laboratory Results - last 24 hr 03/08/17 03/08/17 03/08/17 06:48 06:48 12:21 WBC 11.4 H RBC 3.54 L Hgb 11.0 Hct 35.2 MCV 99 H MCH 31 MCHC 31 RDW 15.7 H Plt Count 59 L Add Manual Diff Complete Total Counted 100 Seg Neuts % (Manual) 80.0 H Band Neutrophils % 0 Lymphocytes % (Manual) 11.0 L Reactive Lymphs % (Man) 0 Monocytes % (Manual) 9.0 H Eosinophils % (Manual) 0 Basophils % (Manual) 0 Metamyelocytes % 0 Myelocytes % 0 Promyelocytes % 0 Blast Cells % 0 Nucleated RBC % Not Reportable Seg Neutrophils # Man 9.1 H Band Neutrophils # 0.0 Lymphocytes # (Manual) 1.3 Abs React Lymphs (Man) 0.0 Monocytes # (Manual) 1.0 H Eosinophils # (Manual) 0.0 Basophils # (Manual) 0.0 Metamyelocytes # 0.0 Myelocytes # 0.0 Promyelocytes # 0.0 Blast Cells # 0.0 WBC Morphology Not Reportable Hypersegmented Neuts Not Reportable Hyposegmented Neuts Not Reportable Hypogranular Neuts Not Reportable Smudge Cells Not Reportable Toxic Granulation Not Reportable Toxic Vacuolation Not Reportable Dohle Bodies Not Reportable Pelger-Huet Anomaly Not Reportable Lu Rods Not Reportable Platelet Estimate Consistent w auto Clumped Platelets Not Reportable Plt Clumps, EDTA Not Reportable Large Platelets Not Reportable Giant Platelets Not Reportable Platelet Satelliting Not Reportable Plt Morphology Comment Not Reportable RBC Morphology Not Reportable Dimorphic RBCs Not Reportable Polychromasia Not Reportable Hypochromasia Not Reportable Poikilocytosis Not Reportable Anisocytosis 1+ Microcytosis Not Reportable Macrocytosis Not Reportable Spherocytes Not Reportable Pappenheimer Bodies Not Reportable Sickle Cells Not Reportable Target Cells Not Reportable Tear Drop Cells Not Reportable Ovalocytes Not Reportable Helmet Cells Not Reportable [place] Bodies Not Reportable [place] Rings Not Reportable [place] Cells Not Reportable Bite Cells Not Reportable Crenated Cell Not Reportable Elliptocytes Not Reportable Acanthocytes (Spur) Not Reportable Rouleaux Not Reportable Hemoglobin C Crystals Not Reportable Schistocytes Not Reportable Malaria parasites Not Reportable Steven Bodies Not Reportable Hem Pathologist Commnt No Sodium 150 H Potassium 3.5 L Chloride 106.8 Carbon Dioxide 32 H Anion Gap 15 BUN 50 H Creatinine 1.6 H Estimated GFR 30 BUN/Creatinine Ratio 31.25 Glucose 118 H Calcium 10.2 Vancomycin Trough 31.0 H
[2017-03-08] MEDS: ZOCOR PO SCH (21:20)
[2017-03-08] MEDS: D5/0.45NS 2,000 ML IV SCH (21:23)
[2017-03-09] MEDS: ZOSYN/NS 4.5GM/100ML 4.5 GM/100 ML VIAL IV SCH ×3 (06:10→21:21)
[2017-03-09] MEDS: NAMENDA XR PO SCH (10:04)
[2017-03-09] MEDS: BABY ASPIRIN PO SCH (10:04)
[2017-03-09] MEDS: PROTONIX PO SCH (10:04)
[2017-03-09] MEDS: ALDACTONE PO SCH (10:04)
[2017-03-09] MEDS: COREG PO SCH ×2 (10:04→21:21)
[2017-03-09 10:22] LABS: Albumin 2.4 g/dL (3.9-5); Albumin/Globulin Ratio 1.2 %; BUN/Creatinine Ratio 35.29; Bilirubin,Total 0.4 mg/dL (0.1-1.2); Calcium 10.4 mg/dL (8.4-10.2); Chloride 106.9 mmol/L (98-107); Potassium 3.3 mmol/L (3.6-5.0); Total Protein 4.4 g/dL (6.3-8.2)
[2017-03-09] MEDS ORDERED: ROBITUSSIN DM PO PRN (11:14)
[2017-03-09] MEDS: MUCINEX ER PO SCH (11:15)
[2017-03-09 11:49] LABS: Basophils % (Auto) 0.6 % (0.0-1.8); Eosinophils % (Auto) 0.9 % (0.0-4.3); Hematocrit 35.9 % (30.3-42.9); Hemoglobin 11.2 gm/dl (10.1-14.3); Mean Corpuscular HGB Conc 31 % (30-34); Mean Corpuscular Hemoglobin 31 pg (28-32); Mean Corpuscular Volume 101 fl (79-97); Red Blood Count 3.57 M/mm3 (3.65-5.03); Red Cell Distribution Width 15.4 % (13.2-15.2); White Blood Count 16.7 K/mm3 (4.5-11.0)
[2017-03-09 11:55] LABS: Platelet Count 53 K/mm3 (140-440)
[2017-03-09 11:59] LABS: INR 1.31 (0.87-1.13)
--- NOTE | 2017-03-09 13:22 | Progress Note ---
Assessment and Plan - Patient Problems (1) Pre-op evaluation Current Visit: Yes Status: Acute Plan to address problem: Patient is postoperative PEG tube placement. No immediate postoperative cardiac problems. Overall, conservative cardiac management. Subjective Date of service: 03/09/17 Principal diagnosis: Neurogenic dysphagia Interval history: Patient is a frail, lethargic, chronically ill-appearing and non-communicative. Objective Vital Signs Temp Pulse Pulse Pulse Resp BP Pulse Ox 03/09/17 10:00 88 81 16 93 03/09/17 09:49 99.0 F 81 16 119/59 92 03/09/17 04:20 97.5 F L 95 H 20 120/63 93 03/09/17 01:17 97.6 F 70 20 112/52 95 03/08/17 22:00 70 16 94 03/08/17 20:52 97.3 F L 70 20 91/52 97 03/08/17 20:37 98 03/08/17 16:30 97.3 F L 71 21 112/54 96 - Physical Examination General: Cachectic, Other (frail, elderly, and O2 facemask) HEENT: Positive: PERRL Neck: Positive: neck supple Cardiac: Positive: Irregularly Regular Lungs: Positive: Decreased Breath Sounds Neuro: Positive: Weakness Abdomen: Positive: Soft Skin: Positive: Clear Extremities: Absent: edema - Labs and Meds Cardiac Enzymes 03/09/17 Range/Units 09:17 AST 19 (5-40) units/L Coagulation 03/09/17 Range/Units 10:33 PT 16.2 H (12.2-14.9) Sec. INR 1.31 H (0.87-1.13) APTT 44.0 H (24.2-36.6) Sec. CBC 03/09/17 Range/Units 10:33 WBC 16.7 H (4.5-11.0) K/mm3 RBC 3.57 L (3.65-5.03) M/mm3 Hgb 11.2 (10.1-14.3) gm/dl Hct 35.9 (30.3-42.9) % Plt Count 53 L (140-440) K/mm3 Lymph # 4.1 (1.2-5.4) K/mm3 [place] # 1.5 H (0.0-0.8) K/mm3 Eos # 0.1 (0.0-0.4) K/mm3 Baso # 0.1 (0.0-0.1) K/mm3 Comprehensive Metabolic Panel 03/09/17 Range/Units 09:17 Sodium 147 H (137-145) mmol/L Potassium 3.3 L (3.6-5.0) mmol/L Chloride 106.9 (98-107) mmol/L Carbon Dioxide 32 H (22-30) mmol/L BUN 60 H (7-17) mg/dL Creatinine 1.7 H (0.7-1.2) mg/dL Glucose 130 H (65-100) mg/dL Calcium 10.4 H (8.4-10.2) mg/dL AST 19 (5-40) units/L ALT 5 L (7-56) units/L Alkaline Phosphatase 76 (35-129) units/L Total Protein 4.4 L (6.3-8.2) g/dL Albumin 2.4 L (3.9-5) g/dL
--- NOTE | 2017-03-09 14:35 | Progress Note ---
Assessment and Plan Assessment and plan: Healthcare Associated pneumonia involving both lower lobes Dementia Dehydration [place] Failed swallow evaluation s/p PEG placement Diastolic dysfunction Thromboctopenia with no active bleeding (Hematology consult placed) - Patient is on IV vancomycin and Zosyn - Supportive care for dementia - S/P PEG placement - Gentle hydration, will give her more fluid through the PEG tube - leukocytosis Disposition - Continue inpatient care - Family expressed not happy in the current assisted so they want to change - inspection manager and social science teacher involved with placement Hospitalist Physical - Constitutional Vitals: Temp Pulse Resp BP Pulse Ox 98.8 F 73 18 126/56 90 03/09/17 14:27 03/09/17 14:27 03/09/17 14:27 03/09/17 14:27 03/09/17 14:27 General appearance: Present: no acute distress Results - Labs CBC & Chem 7: 03/09/17 10:33 03/09/17 09:17 Labs: Laboratory Last Values WBC 16.7 K/mm3 (4.5-11.0) H 03/09/17 10:33 RBC 3.57 M/mm3 (3.65-5.03) L 03/09/17 10:33 Hgb 11.2 gm/dl (10.1-14.3) 03/09/17 10:33 Hct 35.9 % (30.3-42.9) 03/09/17 10:33 MCV 101 fl (79-97) H 03/09/17 10:33 MCH 31 pg (28-32) 03/09/17 10:33 MCHC 31 % (30-34) 03/09/17 10:33 RDW 15.4 % (13.2-15.2) H 03/09/17 10:33 Plt Count 53 K/mm3 (140-440) L 03/09/17 10:33 Lymph % (Auto) 24.7 % (13.4-35.0) 03/09/17 10:33 [place] % (Auto) 9.1 % (0.0-7.3) H 03/09/17 10:33 Eos % (Auto) 0.9 % (0.0-4.3) 03/09/17 10:33 Baso % (Auto) 0.6 % (0.0-1.8) 03/09/17 10:33 Lymph # 4.1 K/mm3 (1.2-5.4) 03/09/17 10:33 [place] # 1.5 K/mm3 (0.0-0.8) H 03/09/17 10:33 Eos # 0.1 K/mm3 (0.0-0.4) 03/09/17 10:33 Baso # 0.1 K/mm3 (0.0-0.1) 03/09/17 10:33 Add Manual Diff Complete 03/08/17 06:48 Total Counted 100 03/08/17 06:48 Seg Neutrophils % 64.7 % (40.0-70.0) 03/09/17 10:33 Seg Neuts % (Manual) 80.0 % (40.0-70.0) H 03/08/17 06:48 Band Neutrophils % 0 % 03/08/17 06:48 Lymphocytes % (Manual) 11.0 % (13.4-35.0) L 03/08/17 06:48 Reactive Lymphs % (Man) 0 % 03/08/17 06:48 Monocytes % (Manual) 9.0 % (0.0-7.3) H 03/08/17 06:48 Eosinophils % (Manual) 0 % (0.0-4.3) 03/08/17 06:48 Basophils % (Manual) 0 % (0.0-1.8) 03/08/17 06:48 Metamyelocytes % 0 % 03/08/17 06:48 Myelocytes % 0 % 03/08/17 06:48 Promyelocytes % 0 % 03/08/17 06:48 Blast Cells % 0 % 03/08/17 06:48 Nucleated RBC % Not Reportable 03/08/17 06:48 Seg Neutrophils # 10.8 K/mm3 (1.8-7.7) H 03/09/17 10:33 Seg Neutrophils # Man 9.1 K/mm3 (1.8-7.7) H 03/08/17 06:48 Band Neutrophils # 0.0 K/mm3 03/08/17 06:48 Lymphocytes # (Manual) 1.3 K/mm3 (1.2-5.4) 03/08/17 06:48 Abs React Lymphs (Man) 0.0 K/mm3 03/08/17 06:48 Monocytes # (Manual) 1.0 K/mm3 (0.0-0.8) H 03/08/17 06:48 Eosinophils # (Manual) 0.0 K/mm3 (0.0-0.4) 03/08/17 06:48 Basophils # (Manual) 0.0 K/mm3 (0.0-0.1) 03/08/17 06:48 Metamyelocytes # 0.0 K/mm3 03/08/17 06:48 Myelocytes # 0.0 K/mm3 03/08/17 06:48 Promyelocytes # 0.0 K/mm3 03/08/17 06:48 Blast Cells # 0.0 K/mm3 03/08/17 06:48 WBC Morphology Not Reportable 03/08/17 06:48 Hypersegmented Neuts Not Reportable 03/08/17 06:48 Hyposegmented Neuts Not Reportable 03/08/17 06:48 Hypogranular Neuts Not Reportable 03/08/17 06:48 Smudge Cells Not Reportable 03/08/17 06:48 Toxic Granulation Not Reportable 03/08/17 06:48 Toxic Vacuolation Not Reportable 03/08/17 06:48 Dohle Bodies Not Reportable 03/08/17 06:48 Pelger-Huet Anomaly Not Reportable 03/08/17 06:48 Lu Rods Not Reportable 03/08/17 06:48 Platelet Estimate Consistent w auto 03/08/17 06:48 Clumped Platelets Not Reportable 03/08/17 06:48 Plt Clumps, EDTA Not Reportable 03/08/17 06:48 Large Platelets Not Reportable 03/08/17 06:48 Giant Platelets Not Reportable 03/08/17 06:48 Platelet Satelliting Not Reportable 03/08/17 06:48 Plt Morphology Comment Not Reportable 03/08/17 06:48 RBC Morphology Not Reportable 03/08/17 06:48 Dimorphic RBCs Not Reportable 03/08/17 06:48 Polychromasia Not Reportable 03/08/17 06:48 Hypochromasia Not Reportable 03/08/17 06:48 Poikilocytosis Not Reportable 03/08/17 06:48 Anisocytosis 1+ 03/08/17 06:48 Microcytosis Not Reportable 03/08/17 06:48 Macrocytosis Not Reportable 03/08/17 06:48 Spherocytes Not Reportable 03/08/17 06:48 Pappenheimer Bodies Not Reportable 03/08/17 06:48 Sickle Cells Not Reportable 03/08/17 06:48 Target Cells Not Reportable 03/08/17 06:48 Tear Drop Cells Not Reportable 03/08/17 06:48 Ovalocytes Not Reportable 03/08/17 06:48 Helmet Cells Not Reportable 03/08/17 06:48 Andrade-[place] Bodies Not Reportable 03/08/17 06:48 [place] Rings Not Reportable 03/08/17 06:48 [place] Cells Not Reportable 03/08/17 06:48 Bite Cells Not Reportable 03/08/17 06:48 Crenated Cell Not Reportable 03/08/17 06:48 Elliptocytes Not Reportable 03/08/17 06:48 Acanthocytes (Spur) Not Reportable 03/08/17 06:48 Rouleaux Not Reportable 03/08/17 06:48 Hemoglobin C Crystals Not Reportable 03/08/17 06:48 Schistocytes Not Reportable 03/08/17 06:48 Malaria parasites Not Reportable 03/08/17 06:48 Steven Bodies Not Reportable 03/08/17 06:48 Hem Pathologist Commnt No 03/08/17 06:48 PT 16.2 Sec. (12.2-14.9) H 03/09/17 10:33 INR 1.31 (0.87-1.13) H 03/09/17 10:33 APTT 44.0 Sec. (24.2-36.6) H 03/09/17 10:33 Heparin Anti-Xa Level 0.98 U.I./ml (0.3-0.7) H 03/05/17 04:09 Sodium 147 mmol/L (137-145) H 03/09/17 09:17 Potassium 3.3 mmol/L (3.6-5.0) L 03/09/17 09:17 Chloride 106.9 mmol/L (98-107) 03/09/17 09:17 Carbon Dioxide 32 mmol/L (22-30) H 03/09/17 09:17 Anion Gap 11 mmol/L 03/09/17 09:17 BUN 60 mg/dL (7-17) H 03/09/17 09:17 Creatinine 1.7 mg/dL (0.7-1.2) H 03/09/17 09:17 Estimated GFR 28 ml/min 03/09/17 09:17 BUN/Creatinine Ratio 35.29 % 03/09/17 09:17 Glucose 130 mg/dL (65-100) H 03/09/17 09:17 POC Glucose 170 (70-105) H 03/09/17 13:50 Calcium 10.4 mg/dL (8.4-10.2) H 03/09/17 09:17 Total Bilirubin 0.40 mg/dL (0.1-1.2) 03/09/17 09:17 AST 19 units/L (5-40) 03/09/17 09:17 ALT 5 units/L (7-56) L 03/09/17 09:17 Alkaline Phosphatase 76 units/L (35-129) 03/09/17 09:17 NT-Pro-B Natriuret Pep 5035 pg/mL (0-900) H 03/03/17 19:43 Total Protein 4.4 g/dL (6.3-8.2) L 03/09/17 09:17 Albumin 2.4 g/dL (3.9-5) L 03/09/17 09:17 Albumin/Globulin Ratio 1.2 % 03/09/17 09:17 TSH 0.359 mlU/mL (0.270-4.200) 03/03/17 20:15 Free T4 1.96 ng/dL (0.76-1.46) H 03/03/17 20:15 Urine Color Yellow (Yellow) 03/03/17 23:21 Urine Turbidity Clear (Clear) 03/03/17 23:21 Urine pH 5.0 (5.0-7.0) 03/03/17 23:21 Ur Specific [place] 1.015 (1.003-1.030) 03/03/17 23:21 Urine Protein <15 mg/dl mg/dL (Negative) 03/03/17 23:21 Urine Glucose (UA) Neg mg/dL (Negative) 03/03/17 23:21 Urine Ketones Neg mg/dL (Negative) 03/03/17 23:21 Urine Blood Sm (Negative) 03/03/17 23:21 Urine Nitrite Neg (Negative) 03/03/17 23:21 Urine Bilirubin Neg (Negative) 03/03/17 23:21 Urine Urobilinogen < 2.0 mg/dL (<2.0) 03/03/17 23:21 Ur Leukocyte Esterase Tr (Negative) 03/03/17 23:21 Urine WBC (Auto) 6.0 /HPF (0.0-6.0) 03/03/17 23:21 Urine RBC (Auto) < 1.0 /HPF (0.0-6.0) 03/03/17 23:21 U Epithel Cells (Auto) 5.0 /HPF (0-13.0) 03/03/17 23:21 Urine Bacteria (Auto) 2+ /HPF (Negative) 03/03/17 23:21 Hyaline Casts 10 /LPF 03/03/17 23:21 Urine Mucus 3+ /HPF 03/03/17 23:21 Vancomycin Trough 31.0 ug/mL (5.0-20.0) H 03/08/17 12:21 Hepatitis A IgM Ab Non-reactive (NonReactive) 03/03/17 20:15 Hep B Core IgM Ab Non-reactive (NonReactive) 03/03/17 20:15 Hepatitis C Antibody Non-reactive (NonReactive) 03/03/17 20:15 HIV 1&2 Antibody Rapid Non react (Non React) 03/03/17 20:15 HIV P24 Antigen Non react (Non React) 03/03/17 20:15
[2017-03-09] MEDS: ZOCOR PO SCH (21:21)
[2017-03-10] MEDS: ZOSYN/NS 4.5GM/100ML 4.5 GM/100 ML VIAL IV SCH ×3 (05:43→21:48)
--- NOTE | 2017-03-10 09:35 | Hem/Onc Consultation ---
History of Present Illness - Reason for Consult Consult date: 03/10/17 - History of Present Illness Dictated. See consult in reports Past History Past Medical History: atrial fib, heart failure (LVEF = 45-50%), hypertension, other (AICD) Past Surgical History: appendectomy, hysterectomy Social history: . denies: smoking, alcohol abuse Family history: no significant family history Medications and Allergies Allergies Allergy/AdvReac Type Severity Reaction Status Date / Time codeine Allergy Headache Verified 03/03/17 19:33 Iodine and Iodide Containing Allergy Rash Verified 03/03/17 19:33 Produc Sulfa (Sulfonamide Allergy Hives Verified 03/03/17 19:33 Antibiotics) Home Medications Medication Instructions Recorded Confirmed Last Taken Type ALBUTEROL Inhaler [Proair] 2 puff IH QID 03/04/17 03/04/17 1 Day Ago History Aspirin 81 mg PO DAILY 03/04/17 03/04/17 1 Day Ago History Coreg 12.5 mg PO DAILY 03/04/17 03/04/17 1 Day Ago History Doxycycline 100 mg PO DAILY 03/04/17 03/04/17 1 Day Ago History Lasix TAB 20 mg PO DAILY 03/04/17 03/04/17 1 Day Ago History Levaquin TAB 750 mg PO DAILY 03/04/17 03/04/17 1 Day Ago History Lisinopril [Zestril TAB] 40 mg PO DAILY 03/04/17 03/04/17 1 Day Ago History Namenda 7 mg PO DAILY 03/04/17 03/04/17 1 Day Ago History Simvastatin 20 mg PO QHS 03/04/17 03/04/17 1 Day Ago History Spironolactone 25 mg PO DAILY 03/04/17 03/04/17 1 Day Ago History guaiFENesin [Mucinex] 600 mg PO Q12HR 03/04/17 03/04/17 1 Day Ago History Active Meds: Active Medications Acetaminophen (Tylenol) 650 mg PO Q6H PRN PRN Reason: For Pain/Fever/Headache Al Hydrox/Mg Hydrox/Simethicone (Alum-Mag Hydrox-Simeth 619-035-38on/5ml) 30 ml PO Q6H PRN PRN Reason: Indigestion Last Admin: 03/08/17 03:17 Dose: 30 ml Lipase/Protease/Amylase (Pancremorris Krishnan 10,500 Unit) 1 each FEEDTUBE PRN PRN PRN Reason: For Clogged Feeding Tube Aspirin (Baby Aspirin) 81 mg PO QDAY [facility] Last Admin: 03/09/17 10:04 Dose: 81 mg Carvedilol (Coreg) 12.5 mg PO BID [facility] Last Admin: 03/09/17 21:21 Dose: 12.5 mg Guaifenesin (Robitussin Dm) 10 ml PO Q4H PRN PRN Reason: Cough Last Admin: 03/09/17 18:30 Dose: 10 ml Piperacillin Sod/Tazobactam Sod (Zosyn/Ns 4.5gm/100ml) 4.5 gm in 100 mls @ 200 mls/hr IV Q8HR [facility] PRN Reason: Protocol Last Admin: 03/10/17 05:43 Dose: 200 mls/hr Dextrose/Sodium Chloride (D5/0.45ns) 2,000 mls @ 125 mls/hr IV DIRECT [facility] Last Admin: 03/08/17 21:23 Dose: 125 mls/hr Memantine (Namenda Xr) 7 mg PO QDAY [facility] Last Admin: 03/09/17 10:04 Dose: 7 mg Ondansetron HCl (Zofran) 4 mg IV Q6H PRN PRN Reason: Nausea And Vomiting Last Admin: 03/05/17 14:29 Dose: 4 mg Oxycodone/Acetaminophen (Percocet 5/325) 1 tab PO Q6H PRN PRN Reason: Pain Pantoprazole (Protonix) 40 mg PO QDAY [facility] Last Admin: 03/09/17 10:04 Dose: 40 mg Simple Syrup (Simple Syrup) 15 ml FEEDTUBE PRN PRN PRN Reason: Hypoglycemia Simple Syrup (Simple Syrup) 30 ml FEEDTUBE PRN PRN PRN Reason: Hypoglycemia Simvastatin (Zocor) 20 mg PO QHS [facility] Last Admin: 03/09/17 21:21 Dose: 20 mg Sodium Bicarbonate (Sodium Bicarbonate) 325 mg FEEDTUBE PRN PRN PRN Reason: For Clogged Feeding Tube Spironolactone (Aldactone) 25 mg PO QDAY [facility] Last Admin: 03/09/17 10:04 Dose: 25 mg Vancomycin HCl (Vancomycin Pharmacy To Dose) 1 each IV PKCONSULT [facility] PRN Reason: Protocol Exam - Constitutional Vitals: Last Vital Signs Temp 97.8 F 03/10/17 08:00 Pulse 74 03/10/17 08:00 Resp 20 03/10/17 08:00 BP 103/51 03/10/17 08:00 Pulse Ox 89 03/10/17 08:00 Results - Labs lab Results: Laboratory Results - last 24 hr 03/09/17 03/09/17 03/09/17 09:17 10:33 10:33 WBC 16.7 H RBC 3.57 L Hgb 11.2 Hct 35.9 MCV 101 H MCH 31 MCHC 31 RDW 15.4 H Plt Count 53 L Lymph % (Auto) 24.7 [place] % (Auto) 9.1 H Eos % (Auto) 0.9 Baso % (Auto) 0.6 Lymph # 4.1 [place] # 1.5 H Eos # 0.1 Baso # 0.1 Seg Neutrophils % 64.7 Seg Neutrophils # 10.8 H PT 16.2 H INR 1.31 H APTT 44.0 H Sodium 147 H Potassium 3.3 L Chloride 106.9 Carbon Dioxide 32 H Anion Gap 11 BUN 60 H Creatinine 1.7 H Estimated GFR 28 BUN/Creatinine Ratio 35.29 Glucose 130 H POC Glucose Calcium 10.4 H Total Bilirubin 0.40 AST 19 ALT 5 L Alkaline Phosphatase 76 Total Protein 4.4 L Albumin 2.4 L Albumin/Globulin Ratio 1.2 03/09/17 03/09/17 03/09/17 13:50 17:07 23:13 WBC RBC Hgb Hct MCV MCH MCHC RDW Plt Count Lymph % (Auto) [place] % (Auto) Eos % (Auto) Baso % (Auto) Lymph # [place] # Eos # Baso # Seg Neutrophils % Seg Neutrophils # PT INR APTT Sodium Potassium Chloride Carbon Dioxide Anion Gap BUN Creatinine Estimated GFR BUN/Creatinine Ratio Glucose POC Glucose 170 H 203 H 198 H Calcium Total Bilirubin AST ALT Alkaline Phosphatase Total Protein Albumin Albumin/Globulin Ratio 03/10/17 06:42 WBC RBC Hgb Hct MCV MCH MCHC RDW Plt Count Lymph % (Auto) [place] % (Auto) Eos % (Auto) Baso % (Auto) Lymph # [place] # Eos # Baso # Seg Neutrophils % Seg Neutrophils # PT INR APTT Sodium Potassium Chloride Carbon Dioxide Anion Gap BUN Creatinine Estimated GFR BUN/Creatinine Ratio Glucose POC Glucose 179 H Calcium Total Bilirubin AST ALT Alkaline Phosphatase Total Protein Albumin Albumin/Globulin Ratio
[2017-03-10 10:03] LABS: BUN/Creatinine Ratio 40.62; Calcium 10.4 mg/dL (8.4-10.2); Chloride 105.7 mmol/L (98-107); Potassium 3.4 mmol/L (3.6-5.0)
[2017-03-10] MEDS: COREG PO SCH ×2 (10:03→21:49)
[2017-03-10 10:23] LABS: Hematocrit 33.1 % (30.3-42.9); Hemoglobin 10.6 gm/dl (10.1-14.3); Mean Corpuscular HGB Conc 32 % (30-34); Mean Corpuscular Hemoglobin 31 pg (28-32); Mean Corpuscular Volume 98 fl (79-97); Red Blood Count 3.39 M/mm3 (3.65-5.03); Red Cell Distribution Width 15.3 % (13.2-15.2); Reticulocyte % 1.06 % (0.78-2.58); White Blood Count 12.7 K/mm3 (4.5-11.0)
[2017-03-10 10:25] LABS: Platelet Count 37 K/mm3 (140-440)
[2017-03-10] MEDS: PROTONIX PO SCH (10:35)
[2017-03-10] MEDS: NAMENDA XR PO SCH (10:35)
[2017-03-10] MEDS: ALDACTONE PO SCH (10:35)
[2017-03-10] MEDS: BABY ASPIRIN PO SCH (10:36)
[2017-03-10 10:49] LABS: Total Iron Binding Capacity 86.8 mcg/dL (250-450)
[2017-03-10 10:59] LABS: Basophils % (Manual) 0 % (0.0-1.8); Blastocytes % (Manual) 0 %; Eosinophils % (Manual) 0 % (0.0-4.3)
[2017-03-10 11:00] LABS: Anisocytosis 1+; Diff Status Complete; Large Platelets Rare; Platelet Estimate Appe
[2017-03-10 11:02] LABS: Smear for Schistocytes None Seen
[2017-03-10 11:40] LABS: ISTAT Base Excess 9; ISTAT HCO3 34.3; ISTAT PCO2 61.9 (35-45); ISTAT PH 7.351 (7.35-7.45); ISTAT PO2 55 (80-105); ISTAT SO2 86; ISTAT TCO2 36
--- NOTE | 2017-03-10 12:15 | Progress Note ---
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 On aspirin therapy. Hypertension Thrombocytopenia Conservative cardiac management. Subjective Date of service: 03/10/17 Principal diagnosis: Neurogenic dysphagia Interval history: No cardiac events overnight. Objective Vital Signs Temp Pulse Pulse Pulse Pulse Resp BP 03/10/17 10:35 61 108/62 03/10/17 09:59 03/10/17 08:00 97.8 F 74 20 03/10/17 00:21 97.6 F 70 18 03/09/17 22:00 70 16 03/09/17 19:49 98.2 F 70 20 03/09/17 18:23 97.2 F L 70 18 03/09/17 14:27 98.8 F 73 18 BP Pulse Ox 03/10/17 10:35 03/10/17 09:59 89 03/10/17 08:00 103/51 89 03/10/17 00:21 111/53 85 03/09/17 22:00 90 03/09/17 19:49 96/53 97 03/09/17 18:23 111/53 94 03/09/17 14:27 126/56 90 - Physical Examination General: Cachectic, Other (frail) HEENT: Positive: PERRL Neck: Positive: neck supple Cardiac: Positive: Reg Rate and Rhythm Neuro: Positive: Weakness Extremities: Absent: edema - Labs and Meds CBC 03/10/17 Range/Units 09:46 WBC 12.7 H (4.5-11.0) K/mm3 RBC 3.39 L (3.65-5.03) M/mm3 Hgb 10.6 (10.1-14.3) gm/dl Hct 33.1 (30.3-42.9) % Plt Count 37 L (140-440) K/mm3 Comprehensive Metabolic Panel 03/09/17 03/10/17 Range/Units 09:17 07:22 Sodium 144 (137-145) mmol/L Potassium 3.4 L (3.6-5.0) mmol/L Chloride 105.7 (98-107) mmol/L Carbon Dioxide 28 (22-30) mmol/L BUN 65 H (7-17) mg/dL Creatinine 1.6 H (0.7-1.2) mg/dL Glucose 171 H (65-100) mg/dL Calcium 10.4 H (8.4-10.2) mg/dL Alkaline Phosphatase 76 (35-129) units/L
--- NOTE | 2017-03-10 13:22 | Progress Note ---
Assessment and Plan Assessment and plan: Healthcare Associated pneumonia involving both lower lobes Dementia Dehydration [place] s/p PEG placement, tube feeding Diastolic dysfunction Thromboctopenia with no active bleeding (Hematology consult placed) - Patient is on IV vancomycin and Zosyn - Supportive care for dementia - S/P PEG placement, tube feeding - Gentle hydration, will give her more fluid through the PEG tube, Na normalized - Thrombocytopenia is getting worse and consulted Hematology and ordered work up for HIT, patient get heparin only on admission - leukocytosis Prognosis - is poor and have discussed with the family Disposition - Continue inpatient care - Hospice care consult placed History Interval history: Patient was seen and evaluated this morning. Patient is lethargic. Patient is S/P PEG placement. Patient was desaturated this morning and currently patient is on BIPAP. I have discussed with family members about hospice and showed interest to discuss more with hospice nurse and I put a consult. Hospitalist Physical - Physical exam Narrative exam: patient was cardiopulmonary distress and desaturating and currently on BIPAP. The patient appeared well nourished and normally developed. Vital signs as documented. Head exam is unremarkable. No scleral icterus . Neck is without jugular venous distension, thyromegaly, or carotid bruits. Lungs are clear to auscultation. Cardiac exam reveals regular rate and Rhythm. First and second heart sounds normal. No murmurs, rubs or gallops. Abdominal exam reveals normal bowel sounds, no masses, no organomegaly and no aortic enlargement. Extremities are nonedematous and both femoral and pedal pulses are normal. Skin has bruises on upper extremities, dry and scaly lower extremity. [employer]: lethargic. - Constitutional Vitals: Temp Pulse Resp BP Pulse Ox 97.8 F 61 20 108/62 89 03/10/17 08:00 03/10/17 10:35 03/10/17 08:00 03/10/17 10:35 03/10/17 09:59 General appearance: Present: no acute distress Results - Labs CBC & Chem 7: 03/10/17 09:46 03/10/17 07:22 Labs: Laboratory Last Values WBC 12.7 K/mm3 (4.5-11.0) H 03/10/17 09:46 RBC 3.39 M/mm3 (3.65-5.03) L 03/10/17 09:46 Hgb 10.6 gm/dl (10.1-14.3) 03/10/17 09:46 Hct 33.1 % (30.3-42.9) 03/10/17 09:46 MCV 98 fl (79-97) H D 03/10/17 09:46 MCH 31 pg (28-32) 03/10/17 09:46 MCHC 32 % (30-34) 03/10/17 09:46 RDW 15.3 % (13.2-15.2) H 03/10/17 09:46 Plt Count 37 K/mm3 (140-440) L 03/10/17 09:46 Lymph % (Auto) 24.7 % (13.4-35.0) 03/09/17 10:33 [place] % (Auto) 9.1 % (0.0-7.3) H 03/09/17 10:33 Eos % (Auto) 0.9 % (0.0-4.3) 03/09/17 10:33 Baso % (Auto) 0.6 % (0.0-1.8) 03/09/17 10:33 Lymph # 4.1 K/mm3 (1.2-5.4) 03/09/17 10:33 [place] # 1.5 K/mm3 (0.0-0.8) H 03/09/17 10:33 Eos # 0.1 K/mm3 (0.0-0.4) 03/09/17 10:33 Baso # 0.1 K/mm3 (0.0-0.1) 03/09/17 10:33 Add Manual Diff Complete 03/10/17 09:46 Total Counted 100 03/10/17 09:46 Seg Neutrophils % 64.7 % (40.0-70.0) 03/09/17 10:33 Seg Neuts % (Manual) 88.0 % (40.0-70.0) H 03/10/17 09:46 Band Neutrophils % 0 % 03/10/17 09:46 Lymphocytes % (Manual) 9.0 % (13.4-35.0) L 03/10/17 09:46 Reactive Lymphs % (Man) 0 % 03/10/17 09:46 Monocytes % (Manual) 3.0 % (0.0-7.3) 03/10/17 09:46 Eosinophils % (Manual) 0 % (0.0-4.3) 03/10/17 09:46 Basophils % (Manual) 0 % (0.0-1.8) 03/10/17 09:46 Metamyelocytes % 0 % 03/10/17 09:46 Myelocytes % 0 % 03/10/17 09:46 Promyelocytes % 0 % 03/10/17 09:46 Blast Cells % 0 % 03/10/17 09:46 Nucleated RBC % Not Reportable 03/10/17 09:46 Seg Neutrophils # 10.8 K/mm3 (1.8-7.7) H 03/09/17 10:33 Seg Neutrophils # Man 11.2 K/mm3 (1.8-7.7) H 03/10/17 09:46 Band Neutrophils # 0.0 K/mm3 03/10/17 09:46 Lymphocytes # (Manual) 1.1 K/mm3 (1.2-5.4) L 03/10/17 09:46 Abs React Lymphs (Man) 0.0 K/mm3 03/10/17 09:46 Monocytes # (Manual) 0.4 K/mm3 (0.0-0.8) 03/10/17 09:46 Eosinophils # (Manual) 0.0 K/mm3 (0.0-0.4) 03/10/17 09:46 Basophils # (Manual) 0.0 K/mm3 (0.0-0.1) 03/10/17 09:46 Metamyelocytes # 0.0 K/mm3 03/10/17 09:46 Myelocytes # 0.0 K/mm3 03/10/17 09:46 Promyelocytes # 0.0 K/mm3 03/10/17 09:46 Blast Cells # 0.0 K/mm3 03/10/17 09:46 WBC Morphology Not Reportable 03/10/17 09:46 Hypersegmented Neuts Not Reportable 03/10/17 09:46 Hyposegmented Neuts Not Reportable 03/10/17 09:46 Hypogranular Neuts Not Reportable 03/10/17 09:46 Smudge Cells Not Reportable 03/10/17 09:46 Toxic Granulation Not Reportable 03/10/17 09:46 Toxic Vacuolation Not Reportable 03/10/17 09:46 Dohle Bodies Not Reportable 03/10/17 09:46 Pelger-Huet Anomaly Not Reportable 03/10/17 09:46 Lu Rods Not Reportable 03/10/17 09:46 Platelet Estimate Appe 03/10/17 09:46 Clumped Platelets Not Reportable 03/10/17 09:46 Plt Clumps, EDTA Not Reportable 03/10/17 09:46 Large Platelets Rare 03/10/17 09:46 Giant Platelets Not Reportable 03/10/17 09:46 Platelet Satelliting Not Reportable 03/10/17 09:46 Plt Morphology Comment Not Reportable 03/10/17 09:46 RBC Morphology Not Reportable 03/10/17 09:46 Dimorphic RBCs Not Reportable 03/10/17 09:46 Polychromasia Not Reportable 03/10/17 09:46 Hypochromasia Not Reportable 03/10/17 09:46 Poikilocytosis Not Reportable 03/10/17 09:46 Anisocytosis 1+ 03/10/17 09:46 Microcytosis Not Reportable 03/10/17 09:46 Macrocytosis Not Reportable 03/10/17 09:46 Spherocytes Not Reportable 03/10/17 09:46 Pappenheimer Bodies Not Reportable 03/10/17 09:46 Sickle Cells Not Reportable 03/10/17 09:46 Target Cells Not Reportable 03/10/17 09:46 Tear Drop Cells Not Reportable 03/10/17 09:46 Ovalocytes Not Reportable 03/10/17 09:46 Helmet Cells Not Reportable 03/10/17 09:46 Andrade-Corwin Bodies Not Reportable 03/10/17 09:46 [place] Rings Not Reportable 03/10/17 09:46 [place] Cells Not Reportable 03/10/17 09:46 Bite Cells Not Reportable 03/10/17 09:46 Crenated Cell Not Reportable 03/10/17 09:46 Elliptocytes Not Reportable 03/10/17 09:46 Acanthocytes (Spur) Not Reportable 03/10/17 09:46 Rouleaux Not Reportable 03/10/17 09:46 Hemoglobin C Crystals Not Reportable 03/10/17 09:46 Schistocytes Not Reportable 03/10/17 09:46 Malaria parasites Not Reportable 03/10/17 09:46 Percent Retic 1.06 % (0.78-2.58) 03/10/17 09:46 Steven Bodies Not Reportable 03/10/17 09:46 Hem Pathologist Commnt No 03/10/17 09:46 PT 16.2 Sec. (12.2-14.9) H 03/09/17 10:33 INR 1.31 (0.87-1.13) H 03/09/17 10:33 APTT 44.0 Sec. (24.2-36.6) H 03/09/17 10:33 Heparin Anti-Xa Level 0.98 U.I./ml (0.3-0.7) H 03/05/17 04:09 POC ABG pH 7.351 (7.35-7.45) 03/10/17 11:12 POC ABG pCO2 61.9 (35-45) H 03/10/17 11:12 POC ABG pO2 55 (80-105) L 03/10/17 11:12 POC ABG HCO3 34.3 03/10/17 11:12 POC ABG Total CO2 36 03/10/17 11:12 POC ABG O2 Sat 86 03/10/17 11:12 POC ABG Base Excess 9 03/10/17 11:12 FiO2 50 % 03/10/17 11:12 Sodium 144 mmol/L (137-145) 03/10/17 07:22 Potassium 3.4 mmol/L (3.6-5.0) L 03/10/17 07:22 Chloride 105.7 mmol/L (98-107) 03/10/17 07:22 Carbon Dioxide 28 mmol/L (22-30) 03/10/17 07:22 Anion Gap 14 mmol/L 03/10/17 07:22 BUN 65 mg/dL (7-17) H 03/10/17 07:22 Creatinine 1.6 mg/dL (0.7-1.2) H 03/10/17 07:22 Estimated GFR 30 ml/min 03/10/17 07:22 BUN/Creatinine Ratio 40.62 % 03/10/17 07:22 Glucose 171 mg/dL (65-100) H 03/10/17 07:22 POC Glucose 179 (70-105) H 03/10/17 06:42 Calcium 10.4 mg/dL (8.4-10.2) H 03/10/17 07:22 Iron 52 ug/dL (37-170) 03/10/17 09:46 TIBC 86.80 mcg/dL (250-450) L 03/10/17 09:46 % Saturation 59.91 % 03/10/17 09:46 Transferrin 62 mg/dl (192-382) L 03/10/17 09:46 Ferritin 339.1 ng/mL (13.0-400.0) 03/10/17 09:46 Total Bilirubin 0.40 mg/dL (0.1-1.2) 03/09/17 09:17 AST 19 units/L (5-40) 03/09/17 09:17 ALT 5 units/L (7-56) L 03/09/17 09:17 Alkaline Phosphatase 76 units/L (35-129) 03/09/17 09:17 NT-Pro-B Natriuret Pep 5035 pg/mL (0-900) H 03/03/17 19:43 Total Protein 4.4 g/dL (6.3-8.2) L 03/09/17 09:17 Albumin 2.4 g/dL (3.9-5) L 03/09/17 09:17 Albumin/Globulin Ratio 1.2 % 03/09/17 09:17 Vitamin B12 771.6 pg/mL (211-911) 03/10/17 09:46 Folate 16.01 ng/mL (7.3-26.0) 03/10/17 09:46 TSH 0.359 mlU/mL (0.270-4.200) 03/03/17 20:15 Free T4 1.96 ng/dL (0.76-1.46) H 03/03/17 20:15 Urine Color Yellow (Yellow) 03/03/17 23:21 Urine Turbidity Clear (Clear) 03/03/17 23:21 Urine pH 5.0 (5.0-7.0) 03/03/17 23:21 Ur Specific [place] 1.015 (1.003-1.030) 03/03/17 23:21 Urine Protein <15 mg/dl mg/dL (Negative) 03/03/17 23:21 Urine Glucose (UA) Neg mg/dL (Negative) 03/03/17 23:21 Urine Ketones Neg mg/dL (Negative) 03/03/17 23:21 Urine Blood Sm (Negative) 03/03/17 23:21 Urine Nitrite Neg (Negative) 03/03/17 23:21 Urine Bilirubin Neg (Negative) 03/03/17 23:21 Urine Urobilinogen < 2.0 mg/dL (<2.0) 03/03/17 23:21 Ur Leukocyte Esterase Tr (Negative) 03/03/17 23:21 Urine WBC (Auto) 6.0 /HPF (0.0-6.0) 03/03/17 23:21 Urine RBC (Auto) < 1.0 /HPF (0.0-6.0) 03/03/17 23:21 U Epithel Cells (Auto) 5.0 /HPF (0-13.0) 03/03/17 23:21 Urine Bacteria (Auto) 2+ /HPF (Negative) 03/03/17 23:21 Hyaline Casts 10 /LPF 03/03/17 23:21 Urine Mucus 3+ /HPF 03/03/17 23:21 Vancomycin Trough 31.0 ug/mL (5.0-20.0) H 03/08/17 12:21 Random Vancomycin 24.9 ug/mL (0-40.0) 03/10/17 07:22 Hepatitis A IgM Ab Non-reactive (NonReactive) 03/03/17 20:15 Hep Bs Antigen Nonreactive (Negative) 03/03/17 20:15 Hep B Core IgM Ab Non-reactive (NonReactive) 03/03/17 20:15 Hepatitis C Antibody Non-reactive (NonReactive) 03/03/17 20:15 HIV 1&2 Antibody Rapid Non react (Non React) 03/03/17 20:15 HIV P24 Antigen Non react (Non React) 03/03/17 20:15 Schistocytes Smear None seen 03/10/17 09:46
[2017-03-10] MEDS ORDERED: PANCREAZE DR 10,500 UNIT FEEDTUBE PRN (16:05)
[2017-03-10] MEDS ORDERED: SODIUM BICARBONATE FEEDTUBE PRN (16:05)
[2017-03-10] MEDS ORDERED: SIMPLE SYRUP FEEDTUBE PRN ×2 (16:05)
[2017-03-10] MEDS: ZOCOR PO SCH (21:49)
--- NOTE | 2017-03-10 23:10 | Consultation ---
REFERRING PHYSICIAN: Ron Braga M.D. REASON FOR CONSULTATION: Thrombocytopenia. HISTORY OF PRESENT ILLNESS: The patient is an 86-year-old female who has history of dementia, hypertension, congestive heart failure with cardiomyopathy, atrial fibrillation, hypertension who was in the rehab facility and developed pneumonia. She was given oral antibiotics, but because of worsening of status she was brought to the hospital. She was noted to have bilateral pneumonias. She also failed the swallowing test. She was found to be thrombocytopenic during her hospital course. Her platelet count on admission was 90,000 on 03/03/2017 and it did drop to 53,000 yesterday. Because of that Hematology consult was called. I could not have the patient's baseline platelet count since this is her first admission. The patient was given a dose of heparin, which was stopped. She is currently on Zosyn. Other medications she has been given are aspirin, Namenda, Zofran, Percocet, Protonix. The patient's other pertinent labs also show her hemoglobin to be 11.2, MCV 101, white count 16.7. The patient ____ placed on the 03/07/[address] Hurtado without any significant bleeding. PAST MEDICAL HISTORY: As mentioned in history of present illness. SOCIAL HISTORY: Does not smoke or drink. PHYSICAL EXAMINATION: GENERAL: The patient is arousable but does not respond much to any questioning. She is pale in color. There is bruising noted on the arms. CHEST: Poor inspiratory effort. She has an oxygen mask on. CARDIOVASCULAR: Irregularly irregular. ABDOMEN: Slightly distended. EXTREMITIES: Has SCDs. No obvious edema noted. PERTINENT LABS: The patient's labs, her hemoglobin today is 8.2, white count 16.7, platelets 53,000, MCV 101. Other pertinent labs show her hepatitis profile to be unremarkable. Creatinine of 1.7, calcium 10.4. ASSESSMENT: Thrombocytopenia in this patient, we do not have her baseline. This could be related to sepsis. She also has macrocytosis. Rule out B12, folate deficiency, rule out myelodysplastic syndrome. Other cause of thrombocytopenia could be medications especially Zosyn that she is on. PLAN: The patient did get a dose of heparin. We will go ahead and monitor her labs. We will do anemia workup and B12 and folate levels. Also get heparin-induced thrombocytopenia assay. Check smear for schistocytes. We will follow. JOB# [id number] [place]
[2017-03-11] MEDS: D5/0.45NS 2,000 ML IV SCH (06:17)
[2017-03-11] MEDS: ZOSYN/NS 4.5GM/100ML 4.5 GM/100 ML VIAL IV SCH (06:18)
[2017-03-11 07:49] LABS: Hematocrit 33.1 % (30.3-42.9); Hemoglobin 10.7 gm/dl (10.1-14.3); Mean Corpuscular HGB Conc 32 % (30-34); Mean Corpuscular Hemoglobin 31 pg (28-32); Mean Corpuscular Volume 97 fl (79-97); Red Blood Count 3.41 M/mm3 (3.65-5.03); Red Cell Distribution Width 15.2 % (13.2-15.2); White Blood Count 16.4 K/mm3 (4.5-11.0)
[2017-03-11 07:55] LABS: Platelet Count 35 K/mm3 (140-440)
--- NOTE | 2017-03-11 09:45 | Hem/Onc Progress Note ---
Assessment and Plan Thrombocytopenia worsening. This could be related to medication along with pneumonia. Blood cultures negative. Discussed with Dr. Tapia and we will discontinue Zosyn and may switch her to another anti-biotic for now. Also discontinue aspirin. B12 folate levels were within normal limits. Agree with hospice Subjective Date of service: 03/11/17 Interval history: Patient without change. Hospice consulted. Family in the room. Objective - Exam Narrative Exam: Bruises present on the arms. - Constitutional Vitals: Last Vital Signs Temp 97.8 F 03/11/17 08:50 Pulse 70 03/11/17 08:50 Resp 22 03/11/17 08:50 BP 110/63 03/11/17 08:50 Pulse Ox 96 03/11/17 08:50 Performance status: 4-completely disabled - Respiratory Respiratory: bilateral: diminished - Cardiovascular Rhythm: irregularly irregular Extremities: abnormal (SCDs) - Gastrointestinal General gastrointestinal: Present: soft (G-tube present) - Labs Lab Results: Laboratory Results - last 24 hr 03/10/17 03/10/17 03/10/17 07:22 07:22 09:46 WBC 12.7 H RBC 3.39 L Hgb 10.6 Hct 33.1 MCV 98 H D MCH 31 MCHC 32 RDW 15.3 H Plt Count 37 L Lymph % (Auto) [place] % (Auto) Eos % (Auto) Baso % (Auto) Lymph # [place] # Eos # Baso # Add Manual Diff Complete Total Counted 100 Seg Neutrophils % Seg Neuts % (Manual) 88.0 H Band Neutrophils % 0 Lymphocytes % (Manual) 9.0 L Reactive Lymphs % (Man) 0 Monocytes % (Manual) 3.0 Eosinophils % (Manual) 0 Basophils % (Manual) 0 Metamyelocytes % 0 Myelocytes % 0 Promyelocytes % 0 Blast Cells % 0 Nucleated RBC % Not Reportable Seg Neutrophils # Seg Neutrophils # Man 11.2 H Band Neutrophils # 0.0 Lymphocytes # (Manual) 1.1 L Abs React Lymphs (Man) 0.0 Monocytes # (Manual) 0.4 Eosinophils # (Manual) 0.0 Basophils # (Manual) 0.0 Metamyelocytes # 0.0 Myelocytes # 0.0 Promyelocytes # 0.0 Blast Cells # 0.0 WBC Morphology Not Reportable Hypersegmented Neuts Not Reportable Hyposegmented Neuts Not Reportable Hypogranular Neuts Not Reportable Smudge Cells Not Reportable Toxic Granulation Not Reportable Toxic Vacuolation Not Reportable Dohle Bodies Not Reportable Pelger-Huet Anomaly Not Reportable Lu Rods Not Reportable Platelet Estimate Appe Clumped Platelets Not Reportable Plt Clumps, EDTA Not Reportable Large Platelets Rare Giant Platelets Not Reportable Platelet Satelliting Not Reportable Plt Morphology Comment Not Reportable RBC Morphology Not Reportable Dimorphic RBCs Not Reportable Polychromasia Not Reportable Hypochromasia Not Reportable Poikilocytosis Not Reportable Anisocytosis 1+ Microcytosis Not Reportable Macrocytosis Not Reportable Spherocytes Not Reportable Pappenheimer Bodies Not Reportable Sickle Cells Not Reportable Target Cells Not Reportable Tear Drop Cells Not Reportable Ovalocytes Not Reportable Helmet Cells Not Reportable [place] Bodies Not Reportable [place] Not Reportable [place] Cells Not Reportable Bite Cells Not Reportable Crenated Cell Not Reportable Elliptocytes Not Reportable Acanthocytes (Spur) Not Reportable Rouleaux Not Reportable Hemoglobin C Crystals Not Reportable Schistocytes Not Reportable Malaria parasites Not Reportable Percent Retic 1.06 Steven Bodies Not Reportable Hem Pathologist Commnt No POC ABG pH POC ABG pCO2 POC ABG pO2 POC ABG HCO3 POC ABG Total CO2 POC ABG O2 Sat POC ABG Base Excess FiO2 Sodium 144 Potassium 3.4 L Chloride 105.7 Carbon Dioxide 28 Anion Gap 14 BUN 65 H Creatinine 1.6 H Estimated GFR 30 BUN/Creatinine Ratio 40.62 Glucose 171 H POC Glucose Calcium 10.4 H Iron TIBC % Saturation Transferrin Ferritin Vitamin B12 Folate Random Vancomycin 24.9 Schistocytes Smear None seen 03/10/17 03/10/17 03/10/17 09:46 09:46 09:46 WBC RBC Hgb Hct MCV MCH MCHC RDW Plt Count Lymph % (Auto) [place] % (Auto) Eos % (Auto) Baso % (Auto) Lymph # [place] # Eos # Baso # Add Manual Diff Total Counted Seg Neutrophils % Seg Neuts % (Manual) Band Neutrophils % Lymphocytes % (Manual) Reactive Lymphs % (Man) Monocytes % (Manual) Eosinophils % (Manual) Basophils % (Manual) Metamyelocytes % Myelocytes % Promyelocytes % Blast Cells % Nucleated RBC % Seg Neutrophils # Seg Neutrophils # Man Band Neutrophils # Lymphocytes # (Manual) Abs React Lymphs (Man) Monocytes # (Manual) Eosinophils # (Manual) Basophils # (Manual) Metamyelocytes # Myelocytes # Promyelocytes # Blast Cells # WBC Morphology Hypersegmented Neuts Hyposegmented Neuts Hypogranular Neuts Smudge Cells Toxic Granulation Toxic Vacuolation Dohle Bodies Pelger-Huet Anomaly Lu Rods Platelet Estimate Clumped Platelets Plt Clumps, EDTA Large Platelets Giant Platelets Platelet Satelliting Plt Morphology Comment RBC Morphology Dimorphic RBCs Polychromasia Hypochromasia Poikilocytosis Anisocytosis Microcytosis Macrocytosis Spherocytes Pappenheimer Bodies Sickle Cells Target Cells Tear Drop Cells Ovalocytes Helmet Cells [place] Bodies [place] Cells Bite Cells Crenated Cell Elliptocytes Acanthocytes (Spur) Rouleaux Hemoglobin C Crystals Schistocytes Malaria parasites Percent Retic Steven Bodies Hem Pathologist Commnt POC ABG pH POC ABG pCO2 POC ABG pO2 POC ABG HCO3 POC ABG Total CO2 POC ABG O2 Sat POC ABG Base Excess FiO2 Sodium Potassium Chloride Carbon Dioxide Anion Gap BUN Creatinine Estimated GFR BUN/Creatinine Ratio Glucose POC Glucose Calcium Iron 52 TIBC 86.80 L % Saturation 59.91 Transferrin 62 L Ferritin 339.1 Vitamin B12 771.6 Folate Random Vancomycin Schistocytes Smear 03/10/17 03/10/17 03/10/17 09:46 11:12 17:24 WBC RBC Hgb Hct MCV MCH MCHC RDW Plt Count Lymph % (Auto) [place] % (Auto) Eos % (Auto) Baso % (Auto) Lymph # [place] # Eos # Baso # Add Manual Diff Total Counted Seg Neutrophils % Seg Neuts % (Manual) Band Neutrophils % Lymphocytes % (Manual) Reactive Lymphs % (Man) Monocytes % (Manual) Eosinophils % (Manual) Basophils % (Manual) Metamyelocytes % Myelocytes % Promyelocytes % Blast Cells % Nucleated RBC % Seg Neutrophils # Seg Neutrophils # Man Band Neutrophils # Lymphocytes # (Manual) Abs React Lymphs (Man) Monocytes # (Manual) Eosinophils # (Manual) Basophils # (Manual) Metamyelocytes # Myelocytes # Promyelocytes # Blast Cells # WBC Morphology Hypersegmented Neuts Hyposegmented Neuts Hypogranular Neuts Smudge Cells Toxic Granulation Toxic Vacuolation Dohle Bodies Pelger-Huet Anomaly Lu Rods Platelet Estimate Clumped Platelets Plt Clumps, EDTA Large Platelets Giant Platelets Platelet Satelliting Plt Morphology Comment RBC Morphology Dimorphic RBCs Polychromasia Hypochromasia Poikilocytosis Anisocytosis Microcytosis Macrocytosis Spherocytes Pappenheimer Bodies Sickle Cells Target Cells Tear Drop Cells Ovalocytes Helmet Cells [place] Bodies [place] Cells Bite Cells Crenated Cell Elliptocytes Acanthocytes (Spur) Rouleaux Hemoglobin C Crystals Schistocytes Malaria parasites Percent Retic Steven Bodies Hem Pathologist Commnt POC ABG pH 7.351 POC ABG pCO2 61.9 H POC ABG pO2 55 L POC ABG HCO3 34.3 POC ABG Total CO2 36 POC ABG O2 Sat 86 POC ABG Base Excess 9 FiO2 50 Sodium Potassium Chloride Carbon Dioxide Anion Gap BUN Creatinine Estimated GFR BUN/Creatinine Ratio Glucose POC Glucose 227 H Calcium Iron TIBC % Saturation Transferrin Ferritin Vitamin B12 Folate 16.01 Random Vancomycin Schistocytes Smear 03/11/17 03/11/17 03/11/17 01:40 06:39 07:05 WBC 16.4 H RBC 3.41 L Hgb 10.7 Hct 33.1 MCV 97 MCH 31 MCHC 32 RDW 15.2 Plt Count 35 L Lymph % (Auto) Political Researcher [place] % (Auto) Political Researcher Eos % (Auto) Political Researcher Baso % (Auto) Political Researcher Lymph # Political Researcher [place] # Political Researcher Eos # Political Researcher Baso # Political Researcher Add Manual Diff Total Counted Seg Neutrophils % Political Researcher Seg Neuts % (Manual) Band Neutrophils % Lymphocytes % (Manual) Reactive Lymphs % (Man) Monocytes % (Manual) Eosinophils % (Manual) Basophils % (Manual) Metamyelocytes % Myelocytes % Promyelocytes % Blast Cells % Nucleated RBC % Seg Neutrophils # Political Researcher Seg Neutrophils # Man Band Neutrophils # Lymphocytes # (Manual) Abs React Lymphs (Man) Monocytes # (Manual) Eosinophils # (Manual) Basophils # (Manual) Metamyelocytes # Myelocytes # Promyelocytes # Blast Cells # WBC Morphology Hypersegmented Neuts Hyposegmented Neuts Hypogranular Neuts Smudge Cells Toxic Granulation Toxic Vacuolation Dohle Bodies Pelger-Huet Anomaly Lu Rods Platelet Estimate Clumped Platelets Plt Clumps, EDTA Large Platelets Giant Platelets Platelet Satelliting Plt Morphology Comment RBC Morphology Dimorphic RBCs Polychromasia Hypochromasia Poikilocytosis Anisocytosis Microcytosis Macrocytosis Spherocytes Pappenheimer Bodies Sickle Cells Target Cells Tear Drop Cells Ovalocytes Helmet Cells And[place]enh[place] Bodies [place] Cells Bite Cells Crenated Cell Elliptocytes Acanthocytes (Spur) Rouleaux Hemoglobin C Crystals Schistocytes Malaria parasites Percent Retic Steven Bodies Hem Pathologist Commnt POC ABG pH POC ABG pCO2 POC ABG pO2 POC ABG HCO3 POC ABG Total CO2 POC ABG O2 Sat POC ABG Base Excess FiO2 Sodium Potassium Chloride Carbon Dioxide Anion Gap BUN Creatinine Estimated GFR BUN/Creatinine Ratio Glucose POC Glucose 175 H 187 H Calcium Iron TIBC % Saturation Transferrin Ferritin Vitamin B12 Folate Random Vancomycin Schistocytes Smear
--- NOTE | 2017-03-11 10:44 | Progress Note ---
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 On aspirin therapy. Hypertension Thrombocytopenia Conservative cardiac management. Subjective Date of service: 03/11/17 Principal diagnosis: Neurogenic dysphagia Interval history: No interval changes. Family members at bedside. Objective Vital Signs Temp Pulse Pulse Pulse Resp BP Pulse Ox 03/11/17 08:50 97.8 F 70 22 110/63 96 03/11/17 08:42 70 70 20 03/11/17 08:28 99 03/11/17 08:02 70 23 99 03/11/17 04:35 97.3 F L 70 20 96/48 97 03/11/17 01:15 97.0 F L 70 22 99/54 97 03/10/17 22:39 70 22 95 03/10/17 22:00 71 16 93 03/10/17 19:57 37.1 F L 67 20 103/51 97 03/10/17 16:45 97.3 F L 113 H 22 143/72 94 03/10/17 16:06 70 20 100 03/10/17 14:00 78 95 03/10/17 12:15 61 31 H 93 - Physical Examination General: Cachectic HEENT: Positive: PERRL Cardiac: Positive: Other (paced) Neuro: Positive: Weakness Abdomen: Positive: Soft Skin: Positive: Clear Extremities: Absent: edema - Labs and Meds CBC 03/11/17 Range/Units 07:05 WBC 16.4 H (4.5-11.0) K/mm3 RBC 3.41 L (3.65-5.03) M/mm3 Hgb 10.7 (10.1-14.3) gm/dl Hct 33.1 (30.3-42.9) % Plt Count 35 L (140-440) K/mm3 Lymph # Reporting Lead [place] # Reporting Lead Eos # Reporting Lead Baso # Reporting Lead
--- NOTE | 2017-03-11 10:46 | Discharge Summary ---
Providers - Providers Date of Admission: 03/03/17 23:23 Date of discharge: 03/11/17 Attending physician: JUANITA CHAVEZ 03/04/17 05:29 Consult to Dietitian/Nutrition [CONS] Routine Physician Instructions: Reason For Exam: Reason for Consult: low cameron score 03/05/17 09:03 Speech Therapy Evaluation and Treat [CONS] Routine Reason For Exam: coughing with food 03/05/17 15:55 Physical Therapy Evaluation and Treat [CONS] Routine Comment: Reason For Exam: skill level for snf 03/06/17 15:04 Consult to Physician [CONS] Routine Consulting Provider: SHANNON LUKE Reason For Exam: PEG tube placement Place consult to:: Katie Gastro Notified:: Office Phone number called:: [phone] Was contact made?: Yes If yes, spoke with:: karen staff Time called:: 15:08 Comment:: follow up clerk to call 03/06/17 17:47 Consult to Physician [CONS] Routine Consulting Provider: LISBET VELASCO Reason For Exam: CHF, cardiac clearance for PEG tube placement Notified:: Casandra from answering service 03/09/17 09:03 Consult to Physician [CONS] Routine Consulting Provider: STEVE MEDINA Reason For Exam: Thrombocytopenia Place consult to:: Hematology Notified:: Haven CORRAL Phone number called:: Was contact made?: Yes If yes, spoke with:: Eric-answering service Time called:: 11:02 03/09/17 19:11 Consult to Wound/ET Nurse [CONS] Routine Reason For Exam: wound eval/left side of left foot Primary care physician: FISHING ROD MECHANIC Hospitalization Condition: Poor Disposition: DC HOSPICE (MEDICAL FACILITY) - Discharge Diagnoses (1) Pneumonia Status: Acute Qualifiers: Pneumonia type: P Aspiration pneumonia type: A Laterality: L Lung location: L (2) Dementia Status: Acute Qualifiers: Dementia type: D Alzheimer's disease onset: A Dementia behavioral disturbance: D Exam - Constitutional Vitals: Temp Pulse Resp BP Pulse Ox 97.8 F 70 22 110/63 96 03/11/17 08:50 03/11/17 08:50 03/11/17 08:50 03/11/17 08:50 03/11/17 08:50 Plan Activity: advance as tolerated Diet: other (PEG tube) Additional Instructions: 1.Discharge to inpatient hospice Follow up with: PRIMARY CARE, [Primary Care Provider] - 3-5 Days Prescriptions: Levofloxacin [Levaquin] 750 mg PO QDAY #5 tablet Pantoprazole [Protonix] 40 mg FEEDTUBE QDAY #30 tablet
[2017-03-11] MEDS: ALDACTONE PO SCH (11:13)
[2017-03-11] MEDS: NAMENDA XR PO SCH (11:13)
[2017-03-11] MEDS: COREG PO SCH (11:13)
[2017-03-11] MEDS: PROTONIX PO SCH (11:13)
[2017-03-11 14:31] VITALS: BP 129/57
[2017-03-12 17:11] LABS: Heparin-Induced Platelet Antib Negative (Negative); Unfractionated Heparin Negative (Negative)
== END 2017-03-11 15:00 | disposition hospice, inpatient (51) | DRG 177 ==
LOC: ED 18:33 → 4A 23:23
PROVIDERS: ADMIT Internal Medicine; ATTEND Internal Medicine
PROC: 4A033R1 Measurement of Arterial Saturation, Peripheral, Percutaneous Approach (ICD-10-PCS; principal; 2017-03-04)
PROC: 3E0234Z Introduction of Serum, Toxoid and Vaccine into Muscle, Percutaneous Approach (ICD-10-PCS; 2017-03-04)
PROC: 0DH63UZ Insertion of Feeding Device into Stomach, Percutaneous Approach (ICD-10-PCS; 2017-03-04)
DX: J69.0 Pneumonitis due to inhalation of food and vomit (principal); N17.0 Acute kidney failure with tubular necrosis; I42.9 Cardiomyopathy, unspecified; E46 Unspecified protein-calorie malnutrition; R91.8 Other nonspecific abnormal finding of lung field; F03.90 Unspecified dementia, unspecified severity, without behavioral disturbance, psychotic disturbance, mood disturbance, and anxiety; E86.0 Dehydration; J44.9 Chronic obstructive pulmonary disease, unspecified; I11.0 Hypertensive heart disease with heart failure; I50.9 Heart failure, unspecified; I48.2 Chronic atrial fibrillation; R13.12 Dysphagia, oropharyngeal phase; J15.1 Pneumonia due to Pseudomonas; R62.7 Adult failure to thrive; R13.19 Other dysphagia; D75.82 Heparin induced thrombocytopenia (HIT); Z90.710 Acquired absence of both cervix and uterus; Z95.810 Presence of automatic (implantable) cardiac defibrillator; Z88.8 Allergy status to other drugs, medicaments and biological substances; Z88.6 Allergy status to analgesic agent; Z91.041 Radiographic dye allergy status; Z88.2 Allergy status to sulfonamides
CPT/HCPCS: 36415; 36600; 51701; 71010; 71250; 74230; 80048; 80053; 80074; 80202; 81001; 82607; 82728; 82747; 82803; 82962; 83550; 83880; 84439; 84443; 85007; 85025; 85045; 85520; 85610; 85730; 86022; 87040; 87806; 90686; 90732; 93005; 93010; 93306; 94660; 94760; G8978-GP; G8979-GP; G8996-GN; G8997-GN; J0690; J1644; J2405; J2543; J3010; J3246; J3370; J7030; J7040; J7050; J7070